=== PATIENT | male | born 1945 | race Caucasian/White ===

== ENCOUNTER 2018-07-09 06:22 | Emergency (ER) | payer MEDICARE, SELFPAY ==
[2018-07-09 06:24] VITALS: BP 153/101; PULSE 81; RESP 21; TEMP 36.9; O2SAT 94; BMI 33.8
--- NOTE | 2018-07-09 06:47 | CT_ITS ---
STUDY: CT ABDOMEN AND PELVIS WITH CONTRAST REASON FOR EXAM: Male, 73 years old. Nausea and vomiting since yesterday RADIATION DOSAGE (If Supplied By Facility): CTDIvol = ( 23.44 ) mGy, DLP = ( 1764.52 ) mGycm TECHNIQUE: Transaxial images were obtained from the dome of the diaphragm to the symphysis pubis with oral contrast. 100CC ml of Isovue 300 contrast was administered. Sagittal and coronal images were reconstructed. Individualized dose optimization techniques were used for this CT. COMPARISON: None. FINDINGS: A densely calcified right lower lobe granuloma. The visualized portions of the heart are within normal limits. There is decreased attenuation of the liver consistent with steatosis. Normal gallbladder and extrahepatic biliary system. There are multiple benign calcified granulomata of the spleen. Normal pancreas. Normal bilateral adrenal glands. Normal right kidney. Normal left kidney. Please note mild bilateral perinephric fat stranding; could be senescent in nature versus indication of infection Normal visualized stomach. Normal small intestine. There are multiple colonic diverticula consistent with diverticulosis. There is non-visualization of the appendix. There is diffuse atherosclerotic calcification of the abdominal aorta, without a demonstrated aneurysm. Normal inferior vena cava. Normal retroperitoneum. Normal urinary bladder. Normal visualized prostate gland. Normal abdominal wall. There are diffuse degenerative changes of the visualized lumbar spine. CT/Abdomen/Pelvis WITH Contrast IMPRESSION: Mild bilateral perinephric fat stranding, likely senescent in nature. Underlying infection cannot be fully excluded. Recommend correlation with UA. Severe fatty steatosis of the liver. Remainder is within normal limits Electronically Signed: Kevin Riddle DO at 9:06 EST Tel , Service support ,
--- NOTE | 2018-07-09 06:47 | EKG12_ITS ---
Test Reason : VOMITING Blood Pressure : / mmHG Vent. Rate : 082 BPM Atrial Rate : 082 BPM P-R Int : 134 ms QRS Dur : 094 ms QT Int : 416 ms P-R-T Axes : 029 022 019 degrees QTc Int : 486 ms Normal sinus rhythm Prolonged QT Abnormal ECG Confirmed by ERLINDA CHIRINOS MD ([id number]), research editor YUKI BURNETT ([id number]) on 07/10/2018 2:08:45 PM Referred By: VINCENT Confirmed By:ERLINDA CHIRINOS MD
--- NOTE | 2018-07-09 06:50 | ED.DCSUM_ITS ---
- ER Visit Summary Date of Service: 07/09/18 Chief Complaint: Nausea, vomiting History of Present Illness: The patient is a 73 M presenting with nausea, vomiting. He states this started yesterday. He states he has vomited approximately 10 times since yesterday. Denies blood in his emesis. Last bowel movement was on Monday. He denies fever. He has mild shortness of breath. Complains of diffuse abdominal pain. Denies sick contacts. Denies bad food exposure. He states he had similar symptoms approximately a month ago that resolved on its own. He denies chest pain. Physical Examination: Vitals are stable. Patient is afebrile. Alert no acute distress. HEENT exam is unremarkable. Neck is supple. Lungs are clear and equal bilaterally. Heart is regular rate and rhythm. Abdomen is soft mild diffuse tenderness with no rebound or guarding Extremities are unremarkable. Skin is diaphoretic No focal neurologic deficit. Remainder of exam is unremarkable. Emergency Department Course and Treatment: Patient is given IV fluids, Zofran. EKG is sinus rate of 82 with no acute ischemic changes. CBC shows white count 11.6, platelet 90. Previous platelets were 109. Chemistries show potassium 3.0, glucose 160, BUN 19, creatinine 1.50. Total bili is 2.8, ALT 118, AST 130. Alk phos 96. Lipase 301. Troponin is negative. Chest x-ray shows no acute process. CT abdomen pelvis is pending at this time and will be checked by the oncoming physician. Disposition: pending CT results Impression: Abdominal pain, nausea, vomiting This note was generated with [employer] dictation software. It may contain incorrect words, spelling, and punctuation that were not noted in review of the chart prior to signing ED Disposition - Plan for ED Patient: Chief Complaint: Nausea/Vomiting Referrals: Aniceto Alamo MD [Primary Care Provider] -
[2018-07-09] MEDS: Ondansetron 4 MG/2 ML Vial IV (06:52)
[2018-07-09] MEDS: 0.9% Normal Saline 1,000 ML 1000 ML IV (06:52)
[2018-07-09 07:09] LABS: Absolute Lymphocyte Count 1.59 X10^3/ul (0.83-4.51); Absolute Neutrophil Count 8.9 X10^3/uL (2.0-7.7); Basophil# 0.03 X10^3/uL; Basophil% 0.3 % (0-1); Eosinophil# 0.14 X10^3/uL; Eosinophils% 1.2 % (0-5); Hematocrit 48.2 % (40-54); Lymphocyte # 1.59 X10^3/ul (4.0); Lymphocyte % 13.7 % (19-41); Mean Corp Hgb Conc 35.3 g/gl (32-36); Mean Corpuscular Hgb 33.1 pg (27.0-32.0); Mean Platelet Vol. 11.1 fl (6.2-12.0); Monocyte# 0.92 X10^3/uL; Monocyte% 7.9 % (0-10); Neutrophil # 8.92 X10^3/uL (2.7-7.7); Neutrophil % 76.7 % (47-70); Platelet Count 90 K/mm3 (150-450); RBC Distribution Width CV 13.1 % (11.6-14.6); RBC Distribution Width SD 44.5 fl (35.1-43.9); Red Blood Count 5.13 M/mm3 (4.6-6.2); White Blood Count 11.6 K/mm3 (4.4-11.0)
[2018-07-09 07:10] LABS: POSITIVE COUNT NO; POSITIVE DIFFERENTIAL NO; POSITIVE MORPHOLOGY NO
[2018-07-09 07:13] LABS: ALB/GLOB Ratio 0.8 RATIO (0.9-2.4); AST(SGOT) 130 U/L (15-37); Alanine Aminotransfer ALT/SGPT 118 U/L (16-61); Albumin, Serum 3.7 g/dL (3.2-5.0); Alkaline Phosphatase 96 U/L (45-117); Anion Gap 14 (5-15); BUN 19 mg/dL (7-18); BUN/Creat Ratio 12.7 RATIO (10-20); Chloride 94 mmol/L (98-107); EST Glomerular Filtration Rate 49 mL/min (>60); Est Glom Filt Rate - Afr Amer 59 mL/min (>60); Estimated Creatinine Clearance 48.86 ml/min; Globulin 4.4 g/dL (2.2-4.2); Glucose 160 mg/dL (74-106); Lipase 301 U/L (73-393); Protein, Total 8.1 g/dL (6.4-8.2); Sodium Level 137 mmol/L (136-145)
--- NOTE | 2018-07-09 07:20 | RAD_ITS ---
STUDY: X-RAY CHEST REASON FOR EXAM: Male, 73 years old. Shortness of breath. TECHNIQUE: Single AP portable view of the chest. COMPARISON: None. FINDINGS: The lungs are clear and expanded. There is no demonstrated pleural abnormality. Normal size heart. There is a left epicardial fat pad. Normal mediastinum and nancy. Normal visualized pulmonary arteries. Normal visualized aortic arch and descending thoracic aorta. Normal visualized thoracic spine. Normal visualized ribs, clavicles, and shoulders. There is no demonstrated abnormality of the visualized soft tissue structures of the upper abdomen. RAD/Chest 1 View (Portable) IMPRESSION: No evidence for acute cardiopulmonary pathology. Electronically Signed: Derek Prajapati MD at 7:38 EST , Service support ,
[2018-07-09 08:23] VITALS: BP 153/90; PULSE 85; RESP 19; O2SAT 94
[2018-07-09 09:14] LABS: Bacteria 0 SEEN /hpf (None Seen); Mucous, Urine 0 SEEN /hpf (<or=2+); White Blood Cells 0 SEEN /hpf (0-5)
[2018-07-09 09:21] LABS: Color, Urine Yellow (Yellow); Glucose, Dipstick Normal (Normal); Ketone-Dipstick 15 mg/dl (Negative); Leukocyte Esterase-Dipstick 25 /ul (Negative); Nitrite-Dipstick Negative (Negative); Occult Blood-Urine 150 /ul (Negative); Protein-Dipstick 30 mg/dl (Negative); Urine Clarity Sl. Cloudy (Clear); Urine Urobilinogen 4 mg/dl (Normal); Urine pH 6.5 (5.0 - 8.0)
[2018-07-09 09:22] LABS: Urine Bilirubin Dipstick 1 mg/dL (Negative)
[2018-07-09 09:29] LABS: Hyaline Cast 0-5 SEEN /lpf (0-5); Red Blood Cells-Urine 0-5 SEEN /hpf (0-5); Squamous Epithelial Cells - UA 0-5 SEEN /hpf (0-5)
[2018-07-09 10:00] VITALS: BP 128/102; PULSE 77; RESP 13; O2SAT 94
--- NOTE | 2018-07-09 11:08 | ED.DCSUM_ITS ---
- ER Visit Summary Date of Service: 07/09/18 This patient was checked out to me by Dr. Sin with a CT and urinalysis pending. Test results: Urinalysis shows leukocytes, blood, and ketones. Micro is negative. Clinical Impression(s) from Imaging Studies Abdomen/Pelvis CT 07/09/18 06:47 IMPRESSION: Mild bilateral perinephric fat stranding, likely senescent in nature. Underlying infection cannot be fully excluded. Recommend correlation with UA. Severe fatty steatosis of the liver. Remainder is within normal limits Electronically Signed: Kevin Riddle DO at 9:06 EST Tel , Service support , Chest X-Ray 07/09/18 07:20 IMPRESSION: No evidence for acute cardiopulmonary pathology. Electronically Signed: Derek Prajapati MD at 7:38 EST , Service support , Emergency Department Course and Treatment: Patient is resting comfortably without complaint. He reports that he has had this multiple times in the past and they have been able to find an etiology for it. Treatment Plan: Patient will be discharged instructions follow-up his primary care physician tomorrow as previously scheduled. He is also given the name of Dr. Lauren to follow-up with as soon as possible. He will be placed on Zofran. Return to the emergency department for any worsening symptoms. Disposition: To home in improved and stable condition. Impression: 1. Vomiting. This note was generated with [employer] dictation software. It may contain incorrect words, spelling, and punctuation that were not noted in review of the chart prior to signing ED Disposition - Plan for ED Patient: Disposition: Home or Assisted Living Chief Complaint: Nausea/Vomiting Instructions: ED Abdominal Pain Unkn Cause Prescriptions: Ondansetron [Zofran Odt] 4 mg PO Q8H PRN PRN #10 tablet PRN Reason: Nausea Referrals: Aniceto Alamo MD [Primary Care Provider] - 1-2 Days if not improving Igor Lauren MD [NON-STAFF] - As soon as possible
[2018-07-09 11:35] VITALS: BP 135/97; PULSE 77; RESP 18; O2SAT 99
== END 2018-07-09 11:35 | disposition home or self-care (01) ==
PROVIDERS: Emergency Provider Emergency Medicine; Family Provider Family Medicine; PCP Family Medicine
DX: R10.84 Generalized abdominal pain (principal); R11.2 Nausea with vomiting, unspecified; K21.9 Gastro-esophageal reflux disease without esophagitis; I10 Essential (primary) hypertension; Z79.899 Other long term (current) drug therapy
CPT/HCPCS: 71045; 74177; 80053; 81001; 83690; 84484; 85025; 93005; 96361; 96374; 99284; J7030; Q9967; A4216; J2405

== ENCOUNTER → 2019-06-10 | Outpatient (CLI) | payer MEDICARE, SELFPAY ==
[2019-06-10 18:06] LABS: International Normalized Ratio 1.1; Prothrombin Time (Protime)PT. 14.1 SECONDS (11.7-14.9)
[2019-06-10 18:07] LABS: Partial Thromboplast Time 35.5 Seconds (24.1-36.2)
[2019-06-10 18:28] LABS: AST(SGOT) 19 U/L (15-37); Alanine Aminotransfer ALT/SGPT 15 U/L (16-61); Albumin, Serum 3.7 g/dL (3.2-5.0); Alkaline Phosphatase 105 U/L (45-117); Bilirubin, Direct 0.22 mg/dL (0.00-0.30); Globulin 3.5 g/dL (2.2-4.2); Protein, Total 7.2 g/dL (6.4-8.2)
[2019-06-11 10:13] LABS: Hepatitis B Surface Antigen REACTIVE (Nonreactive)
[2019-06-12 13:06] LABS: AFP, Tumor Marker 2.5 ng/mL (0.0-8.3)
== END | disposition home or self-care (01) ==
PROVIDERS: Family Provider Family Medicine; PCP Family Medicine; Referring Provider Internal Medicine Gastroenterology; Visit Provider Internal Medicine Gastroenterology
DX: B18.1 Chronic viral hepatitis B without delta-agent (principal)
CPT/HCPCS: 36415; 80076; 82105; 85610; 85730; 87340

== ENCOUNTER → 2020-06-03 | Outpatient (CLI) | payer MEDICARE, SELFPAY ==
[2020-06-03 12:22] LABS: Hematocrit 47.9 % (40-54); Hemoglobin 15.9 g/dL (13.0-16.5); Mean Corp Hgb Conc 33.2 g/dL (32-36); Mean Corpuscular Hgb 31.1 pg (27.0-32.0); Mean Corpuscular Volume 93.6 fL (80-94); Mean Platelet Vol. 11.8 fl (6.2-12.0); Platelet Count 123 K/mm3 (150-450); RBC Distribution Width CV 13.6 % (11.6-14.6); RBC Distribution Width SD 46.5 fl (35.1-43.9); Red Blood Count 5.12 M/mm3 (4.6-6.2); White Blood Count 7.6 K/mm3 (4.4-11.0)
[2020-06-03 12:42] LABS: International Normalized Ratio 1.1; Prothrombin Time (Protime)PT. 13.6 SECONDS (11.7-14.9)
[2020-06-03 12:44] LABS: Partial Thromboplast Time 32.6 Seconds (24.1-36.2)
[2020-06-03 12:53] LABS: AST(SGOT) 19 U/L (15-37); Alanine Aminotransfer ALT/SGPT 18 U/L (16-61); Albumin, Serum 3.5 g/dL (3.2-5.0); Alkaline Phosphatase 99 U/L (45-117); Anion Gap 3 (5-15); BUN 16 mg/dL (7-18); Chloride 108 mmol/L (98-107); Creatinine, Serum 1.14 mg/dL (0.70-1.30); EST Glomerular Filtration Rate 67 mL/min (>60); Est Glom Filt Rate - Afr Amer 81 mL/min (>60); Globulin 3.4 g/dL (2.2-4.2); Glucose 102 mg/dL (74-106); Potassium 3.9 mmol/L (3.5-5.1); Protein, Total 6.9 g/dL (6.4-8.2); Sodium Level 140 mmol/L (136-145)
== END | disposition home or self-care (01) ==
PROVIDERS: PCP Family Medicine; Referring Provider Internal Medicine Gastroenterology; Visit Provider Internal Medicine Gastroenterology
DX: B18.1 Chronic viral hepatitis B without delta-agent (principal)
CPT/HCPCS: 36415; 80053; 85027; 85610; 85730

== ENCOUNTER → 2020-06-12 | Outpatient (CLI) | payer MEDICARE, SELFPAY ==
--- NOTE | 2020-06-12 10:19 | MRI_ITS ---
STUDY: MRI ABDOMEN WITH AND WITHOUT CONTRAST REASON FOR EXAM: Male, 75 years old. hep c, cirrhosis, GENERALIZED ABD PAIN TECHNIQUE: Standardized fat and water weighted pulse sequences were obtained in all 3 orthogonal planes post contrast administration. IV DOTAREM 22CC was administered for the contrast portion of the examination. COMPARISON: CT scan 07/09/2018. FINDINGS: The visualized lung bases are unremarkable. The visualized portions of the heart are within normal limits. There is hepatomegaly with diffuse hepatic enlargement. No focal masses. No specific evidence for cirrhosis. Normal gallbladder and extrahepatic biliary system. Normal spleen. Normal pancreas. Normal bilateral adrenal glands. Normal right kidney. Normal left kidney. Grossly normal visualized stomach. Grossly normal small intestine. Grossly normal colon. There is non-visualization of the appendix. Normal abdominal aorta. Normal inferior vena cava. Normal retroperitoneum. Normal abdominal wall. There are diffuse degenerative changes of the visualized lumbar spine. MRI/MRI Abd WITH and W/O Contrast IMPRESSION: Hepatomegaly, but otherwise negative exam. Electronically Signed: Armando Cox MD at 16:22 EDT , Service support ,
== END | disposition home or self-care (01) ==
PROVIDERS: PCP Family Medicine; Referring Provider Internal Medicine Gastroenterology; Visit Provider Internal Medicine Gastroenterology
DX: K74.60 Unspecified cirrhosis of liver (principal); B19.10 Unspecified viral hepatitis B without hepatic coma
CPT/HCPCS: 74183; A9575; A4216

== ENCOUNTER → 2020-12-17 09:06 | Outpatient (CLI) | payer MEDICARE, SELFPAY ==
[2020-12-17 10:43] LABS: Prothrombin Time (Protime)PT. 12.9 SECONDS (11.7-14.9)
[2020-12-17 10:44] LABS: Partial Thromboplast Time 29.9 Seconds (24.1-36.2)
[2020-12-17 11:00] LABS: AST(SGOT) 20 U/L (15-37); Alanine Aminotransfer ALT/SGPT 19 U/L (16-61); Albumin, Serum 3.6 g/dL (3.2-5.0); Alkaline Phosphatase 98 U/L (45-117); Bilirubin, Direct 0.24 mg/dL (0.00-0.30); Globulin 3.4 g/dL (2.2-4.2)
[2020-12-17 11:15] LABS: Hepatitis B Surface Antigen REACTIVE (Nonreactive)
[2020-12-18 15:49] LABS: AFP, Tumor Marker 2.5 ng/mL (0.0-8.3)
== END ==
PROVIDERS: PCP Family Medicine; Referring Provider Internal Medicine Gastroenterology; Visit Provider Internal Medicine Gastroenterology
DX: K74.60 Unspecified cirrhosis of liver (principal); B18.1 Chronic viral hepatitis B without delta-agent
CPT/HCPCS: 36415; 80076; 82105; 85610; 85730; 87340

== ENCOUNTER → 2021-06-22 08:45 | Outpatient (CLI) | payer MEDICARE, SELFPAY ==
--- NOTE | 2021-06-22 08:48 | US_ITS ---
STUDY: ABDOMINAL ULTRASOUND - RIGHT UPPER QUADRANT REASON FOR VISIT: Male, 76 years old CHRONIC HEP B TECHNIQUE: Ultrasound evaluation of the right upper quadrant was performed with real-time and static walsh-scale imaging. TECHNICAL QUALITY: Adequate. COMPARISON: None. FINDINGS: Liver: The liver measures 19.5 cm. There is normal echogenicity of the liver. The bile ducts are within normal limits. There is hepatic color flow. The direction of portal flow is hepatopetal. There is no demonstrated mass lesion. Gallbladder: Normal distended gallbladder. The gallbladder wall measures 3 mm. There is a negative sonographic Castro''s sign. There is no pericholecystic fluid. There are no gallstones. Common Bile Duct (C.B.D.): The common bile duct measures 3 mm. Pancreas: Normal size of the head, body and tail of the pancreas. There is normal echogenicity of the pancreas. There is no demonstrated pancreatic mass or cyst. No pancreatic ductal dilation demonstrated. Right Kidney: Normal size of the right kidney. The right kidney measures 10.3 x 6.2 x 6 cm. Normal renal cortex. The right cortex measures 1.5 cm. There is no demonstrated renal mass or cyst. There is no right hydronephrosis. US/Liver IMPRESSION: Hepatomegaly. Electronically Signed: Jay Balderas MD at 3:50 EDT Tel , Service support ,
== END ==
PROVIDERS: PCP Family Medicine; Referring Provider Internal Medicine Gastroenterology; Visit Provider Internal Medicine Gastroenterology
DX: B18.1 Chronic viral hepatitis B without delta-agent (principal)
CPT/HCPCS: 76705

== ENCOUNTER → 2021-06-23 11:06 | Outpatient (CLI) | payer MEDICARE, SELFPAY ==
[2021-06-23 15:24] LABS: Partial Thromboplast Time 34.3 Seconds (24.1-36.2)
[2021-06-23 15:30] LABS: AST(SGOT) 19 U/L (15-37); Alanine Aminotransfer ALT/SGPT 24 U/L (16-61); Albumin, Serum 3.4 g/dL (3.2-5.0); Alkaline Phosphatase 84 U/L (45-117); Bilirubin, Direct 0.26 mg/dL (0.00-0.30); Globulin 3.8 g/dL (2.2-4.2); Protein, Total 7.2 g/dL (6.4-8.2)
[2021-06-23 15:34] LABS: International Normalized Ratio 1.1; Prothrombin Time (Protime)PT. 13.3 SECONDS (11.7-14.9)
[2021-06-25 13:21] LABS: AFP, Tumor Marker 2.1 ng/mL (0.0-8.3)
== END ==
PROVIDERS: PCP Family Medicine; Referring Provider Internal Medicine Gastroenterology; Visit Provider Internal Medicine Gastroenterology
DX: B18.1 Chronic viral hepatitis B without delta-agent (principal)
CPT/HCPCS: 36415; 80076; 82105; 85610; 85730

== ENCOUNTER 2021-07-07 20:09 | Emergency (ER) | payer MEDICARE, SELFPAY ==
[2021-07-07 20:10] VITALS: BP 152/98; PULSE 53; RESP 16; TEMP 35.8; O2SAT 97; BMI 34.8
--- NOTE | 2021-07-07 21:37 | EX.ED.UPPERE ---
HPI History of Present Illness Chief Complaint: Laceration Informant: patient Narrative Narrative: Left hand dominant male presents injury right pinky from a paper Mahesh 7:30 PM. States was cleaning the blades when it turned on. No anticoagulant medicines. Tetanus unknown. States it was a flap of skin controlled with pressure. No paresthesias. No other complaints or injuries. Tetanus Immunization: Unknown [facility] Medical History COPD (chronic obstructive pulmonary disease) Essential (primary) hypertension GERD (gastroesophageal reflux disease) Hyperlipemia, mixed Home Medications kxofyexo-qma-GO-lycopen-lutein 1 ea PO DAILY 07/14/16 [History Last Taken Unknown] vit C,U-Ae-mknco-lutein-zeaxan 1 ea PO DAILY 07/14/16 [History Last Taken Unknown] omeprazole 20 mg capsule,delayed release 20 mg PO QDAY 08/22/17 [History Last Taken Unknown] metoprolol succinate 200 mg tablet,extended release 24 hr 200 mg PO QDAY 08/23/17 [History Last Taken Unknown] levothyroxine 25 mcg PO DAILY 07/09/18 [History Last Taken Unknown] ondansetron 4 mg PO Q8H PRN PRN #10 tab 07/09/18 [Rx Last Taken Unknown] Allergy/AdvReac Type Severity Reaction Status Date / Time No Known Allergies Allergy Verified 07/14/16 09:15 Family History Father Diabetes Surgical History History of back surgery (~05/2016) Social History Smoking Status: Former smoker alcohol intake: current alcohol intake frequency: a few times a month Alcohol type: beer substance use type: does not use caffeine: Yes Type: tea what type of physical activity do you participate in: none seatbelt use: always do you feel safe at home: Yes ROS ROS ED Constitutional Constitutional ED: Denies chills, fever(s) or sweats Eyes Eyes: Denies change in vision ENT ENT ED: Denies dysphagia or sore throat Cardiovascular Cardiovascular: Denies chest pain, leg edema, palpitations or racing heartbeat Respiratory/Chest Respiratory/Chest: Denies cough, dyspnea or dyspnea on exertion Gastrointestinal Gastrointestinal: Denies abdominal pain, diarrhea, nausea or vomiting Genitourinary Genitourinary ED: Denies dysuria, hematuria or urinary frequency Musculoskeletal Musculoskeletal: Denies back pain, extremity pain or neck pain Integumentary Reports rash and other Details: Right pinky injury ; Denies wounds Neurologic Neurologic: Denies headache(s), paresthesias or weakness EXAM Physical Exam Const Vital Signs: 07/07/21 20:10 Temperature 96.5 F L Temperature Source Temporal Pulse Rate 53 L Respiratory Rate 16 Blood Pressure 152/98 H Blood Pressure Mean 116 Pulse Ox 97 Oxygen Delivery Method Room Air Positive well nourished and well developed General Appearance ED: well developed and NAD HEENT Reports moist mucous membranes normocephalic and atraumatic Eyes PERRL, EOMs intact bilaterally and conjunctivae normal General Eye ED: Yes normal appearance of both eyes Neck no lymphadenopathy and supple General: Negative for tenderness Chest Wall Chest: Negative for tenderness Resp normal respiratory effort and normal air movement Effort and Inspection: symmetric chest movement; Negative for respiratory distress Cardio regular rate, regular rhythm and no murmurs Peripheral Pulses: pulses 2+ throughout GI normal to inspection, nondistended, normoactive bowel sounds and non-tender Palpation: Negative for guarding or rebound tenderness present Back/Spine no CVA tenderness and no thoracic nor lumbar tenderness Extremity Extremity Narrative: Right hand fifth digit. Dressing removed, there was slight jagged laceration distal tip with nailbed injury at the tip with nail avulsed. Total laceration flap 2.5 cm. No active bleeding. No bony exposure. General Extremety ED: Negative for edema or tenderness General Extremity: Negative for edema Neuro oriented x3 and no sensory deficits noted Sensorium / Orientation: awake and alert Skin no rashes or lesions noted and no wounds MDM MDM MDM Narrative Medical decision making narrative: Three-view x-ray right pinky finger obtained reviewed by myself and read by radiology shows no bony injuries. Tetanus updated. Laceration repaired, wound care discussed with patient. Sutures removed in 10 to 14 days. All questions were answered. Procedure note: Verbal consent. Normal sterile conditions. Alcohol prep of the skin, metacarpal block performed of the fifth digit. Wound copiously cleansed with normal saline. Turnicot was placed, flap of skin with avulsion noted at the right distal tip radial aspect, 2 half centimeters, nailbed injury. Total of 2, 5-0 nylon simple interrupted sutures were placed with good approximation of the flap. Small superficial skin avulsion noted proximally which was debrided. Bacitracin dressing with finger splint placed by myself. Turnicot was removed. Bleeding controlled. Patient tolerated procedure well. Discharge Plan Triage Chief Complaint: Laceration ED Provider: Brayden Gonsales Dx/Rx/DC Orders Clinical Impression: Laceration of right little finger, Need for tetanus, diphtheria, and acellular pertussis (Tdap) vaccine Instructions: ED Laceration, Hand: All Closures Prescriptions: No Action omeprazole 20 mg capsule,delayed release(DR/EC) 20 mg PO QDAY RF: 0 metoprolol succinate 200 mg tablet extended release 24 hr 200 mg PO QDAY RF: 0 kwsiwqcr-okg-GV-lycopen-lutein 1 EACH tablet 1 ea PO DAILY RF: 0 vit C,N-Xs-lituc-lutein-zeaxan 1 EACH capsule 1 ea PO DAILY RF: 0 levothyroxine 25 MCG tablet 25 mcg PO DAILY RF: 0 ondansetron 4 MG tablet 4 mg PO Q8H PRN PRN (Reason: Nausea) Qty: 10 RF: 0 Primary Care Provider: Aniceto Alamo Referrals: Aniceto Alamo MD [Primary Care Provider] - 10-14 Days suture removal Disposition Disposition: Home, Self Care Discharge Date/Time: 07/08/21 00:06
--- NOTE | 2021-07-07 21:45 | RAD_ITS ---
INDICATION: injury -- pinky injury EXAMINATION/TECHNIQUE: X-RAY - RIGHT HAND XR Fingers Min 2 Views 3 VIEWS COMPARISON: None. FINDINGS: SOFT TISSUES: No soft tissue swelling or gas. No radiopaque foreign body. BONES/JOINTS: No acute fracture or subluxation.. Normal alignment. Preservation of the joint space.. No sclerotic or destructive changes observed. RAD/Finger(s) Min 2 Views IMPRESSION: Negative. Electronically Signed: Herrera Ortega DO at 23:15 EDT Tel , Service support ,
[2021-07-07] MEDS: Diphth,Pertuss(Acell),Tet Vac 0.5 ML Vial IM (22:01)
[2021-07-07] MEDS: Lidocaine 1% (20 ml mdv) 20 ML Vial INFILT (22:01)
[2021-07-07] MEDS: BACITRACIN 15 GM Tube 1 APPLIC TOPICAL (22:02)
[2021-07-08 00:06] VITALS: PULSE 62; RESP 18; O2SAT 96
== END 2021-07-08 00:06 | disposition home or self-care (01) ==
PROVIDERS: Emergency Provider Emergency Medicine; PCP Family Medicine
DX: S61.316A Laceration without foreign body of right little finger with damage to nail, initial encounter (principal); J44.9 Chronic obstructive pulmonary disease, unspecified; I10 Essential (primary) hypertension; K21.9 Gastro-esophageal reflux disease without esophagitis; E78.2 Mixed hyperlipidemia; Z79.899 Other long term (current) drug therapy; Z87.891 Personal history of nicotine dependence; Z23 Encounter for immunization; W26.8XXA Contact with other sharp object(s), not elsewhere classified, initial encounter; Y93.89 Activity, other specified; Y92.89 Other specified places as the place of occurrence of the external cause; Y99.8 Other external cause status
CPT/HCPCS: 12001; 73140; 90471; 90715; 99283

== ENCOUNTER 2021-12-20 09:07 | Outpatient (CLI) | payer MEDICARE, OTHER, SELFPAY ==
[2021-12-20 10:13] LABS: Prothrombin Time (Protime)PT. 13.3 SECONDS (11.7-14.9)
[2021-12-20 10:14] LABS: Partial Thromboplast Time 32.3 Seconds (24.1-36.2)
[2021-12-20 10:44] LABS: AST(SGOT) 21 U/L (15-37); Alanine Aminotransfer ALT/SGPT 18 U/L (16-61); Albumin, Serum 3.4 g/dL (3.2-5.0); Alkaline Phosphatase 90 U/L (45-117); Bilirubin, Direct 0.22 mg/dL (0.00-0.30); Globulin 3.5 g/dL (2.2-4.2); Protein, Total 6.9 g/dL (6.4-8.2)
[2021-12-22 10:32] LABS: AFP, Tumor Marker 2.2 ng/mL (0.0-8.4)
== END 2021-12-20 23:59 | disposition home or self-care (01) ==
PROVIDERS: PCP Family Medicine; Referring Provider Internal Medicine Gastroenterology; Visit Provider Internal Medicine Gastroenterology
DX: B18.1 Chronic viral hepatitis B without delta-agent (principal)
CPT/HCPCS: 36415; 80076; 82105; 85610; 85730

== ENCOUNTER → 2022-01-12 | Outpatient (CLI) | payer MEDICARE, OTHER, SELFPAY ==
--- NOTE | 2022-01-12 09:05 | US_ITS ---
STUDY: ABDOMINAL ULTRASOUND - ELASTOGRAPHY REASON FOR VISIT: Male, 76 years old. Chronic hepatitis B. TECHNIQUE: Liver stiffness measurements were obtained on a [employer] RS 85 ultrasound machine using a CA 1-7 probe following the SRU guidelines. 3 measurements were obtained using a 2-D-SWE method. The IQR/M was 22% suggesting a quality data set. TECHNICAL QUALITY: Adequate. COMPARISON: Comparison is made with prior study done earlier in the day. FINDINGS: Liver: Fatty infiltration of the liver. Median liver stiffness measured 7.1 kPa. US/Elastography Parenchyma/Organ IMPRESSION: Liver stiffness measures 7.1 kPa compatible with F2-F3 (Mild to moderate liver fibrosis) Metavir score. Electronically Signed: Ervin Armas MD at 13:27 EDT ,
--- NOTE | 2022-01-12 09:17 | US_ITS ---
STUDY: ABDOMINAL ULTRASOUND - RIGHT UPPER QUADRANT REASON FOR VISIT: Male, 76 years old CHRONIC HEP B TECHNIQUE: Ultrasound evaluation of the right upper quadrant was performed with real-time and static walsh-scale imaging. TECHNICAL QUALITY: Adequate. COMPARISON: Comparison is made with prior study dated 06/22/2021. FINDINGS: Liver: The liver is enlarged and measures 20.7 cm. There is increased echogenicity consistent with fatty infiltration. The bile ducts are within normal limits. There is hepatic color flow. The direction of portal flow is hepatopetal. There is no demonstrated mass lesion. Gallbladder: Normal distended gallbladder. The gallbladder wall measures 2.6 mm. There is a negative sonographic Castro''s sign. There is no pericholecystic fluid. There is a solitary echogenic gallstone within the gallbladder. Sludge is seen within the gallbladder lumen. Common Bile Duct (C.B.D.): The common bile duct measures 4.5 mm. Pancreas: Normal size of the head, body and tail of the pancreas. There is increased echogenicity of the pancreas. There is no demonstrated pancreatic mass or cyst. Right Kidney: Normal size of the right kidney. The right kidney measures 10.3 cm x 5.7 cm x 5.4 cm. Normal renal cortex. The right cortex measures 1.5 cm. There is no demonstrated renal mass or cyst. There is no right hydronephrosis. US/Abdomen Limited IMPRESSION: Hepatomegaly and diffuse fatty infiltration of the liver. 3 mm gallstone and sludge in the gallbladder lumen. Electronically Signed: Ervin Armas MD at 13:25 EDT ,
== END | disposition home or self-care (01) ==
LOC: US 09:03
PROVIDERS: PCP Family Medicine; Referring Provider Internal Medicine Gastroenterology; Visit Provider Internal Medicine Gastroenterology
DX: B18.1 Chronic viral hepatitis B without delta-agent (principal)
CPT/HCPCS: 76705; 76981

== ENCOUNTER 2022-07-05 07:53 | Outpatient (RCR) | payer MEDICARE, OTHER, SELFPAY ==
[2022-07-05 10:18] LABS: Hematocrit 48.7 % (40-54); Hemoglobin 17.1 g/dL (13.0-16.5); Mean Corp Hgb Conc 35.1 g/dL (32-36); Mean Corpuscular Hgb 32.6 pg (27.0-32.0); Mean Corpuscular Volume 92.8 fL (80-94); Mean Platelet Vol. 10.5 fl (6.2-12.0); Platelet Count 112 K/mm3 (150-450); RBC Distribution Width CV 14.5 % (11.6-14.6); RBC Distribution Width SD 49.2 fl (35.1-43.9); Red Blood Count 5.25 M/mm3 (4.6-6.2)
[2022-07-05 10:29] LABS: AST(SGOT) 24 U/L (15-37); Alanine Aminotransfer ALT/SGPT 22 U/L (16-61); Albumin, Serum 3.5 g/dL (3.2-5.0); Alkaline Phosphatase 73 U/L (45-117); Anion Gap 6 (5-15); BUN 16 mg/dL (7-18); BUN/Creat Ratio 13.7 RATIO (10-20); Calcium,Total 8.9 mg/dL (8.5-10.1); Chloride 108 mmol/L (98-107); Creatinine, Serum 1.17 mg/dL (0.70-1.30); EST Glomerular Filtration Rate 64 mL/min (>60); Est Glom Filt Rate - Afr Amer 78 mL/min (>60); Globulin 3.5 g/dL (2.2-4.2); Glucose 117 mg/dL (74-106); Potassium 4.3 mmol/L (3.5-5.1); Sodium Level 140 mmol/L (136-145)
[2022-07-05 10:33] LABS: Partial Thromboplast Time 32.3 Seconds (24.1-36.2)
[2022-07-07 15:57] LABS: AFP, Tumor Marker 3.1 ng/mL (0.0-8.4)
== END 2022-08-03 18:00 | disposition home or self-care (01) ==
LOC: MTLAB 07:53
PROVIDERS: PCP Family Medicine; Referring Provider Internal Medicine Gastroenterology; Visit Provider Internal Medicine Gastroenterology
DX: B18.0 Chronic viral hepatitis B with delta-agent (principal)
CPT/HCPCS: 36415; 80053; 82105; 85027; 85610; 85730

== ENCOUNTER → 2022-07-13 | Outpatient (CLI) | payer MEDICARE, OTHER, SELFPAY | END | disposition home or self-care (01) | PROVIDERS: PCP Family Medicine; Referring Provider Internal Medicine Gastroenterology; Visit Provider Internal Medicine Gastroenterology | DX: B18.1 Chronic viral hepatitis B without delta-agent (principal) | CPT/HCPCS: 36415 ==

== ENCOUNTER → 2022-07-18 | Outpatient (CLI) | payer MEDICARE, OTHER, SELFPAY ==
--- NOTE | 2022-07-18 07:15 | CT_ITS ---
STUDY: CT ABDOMEN WITH CONTRAST REASON FOR EXAM: Male, 77 years old. CIRRHOSIS. Chronic hepatitis B. RADIATION DOSAGE (If Supplied By Facility): CTDIvol = ( 19.92 ) mGy, DLP = ( 779.28 ) mGycm TECHNIQUE: Transaxial images were obtained post I.V. administration of IV 100mL Isovue-300, and oral contrast. Sagittal and coronal images were reconstructed. Individualized dose optimization techniques were used for this CT. COMPARISON: Comparison is made with prior study dated 07/09/2018. FINDINGS: Stable calcified granuloma in the right lower lobe. Coronary artery calcification. There is decreased attenuation of the liver consistent with steatosis. Small gallstones in the region of the neck of the gallbladder. There are multiple benign calcified granulomata of the spleen. Normal pancreas. There is a small, circumscribed, smooth, low attenuation right adrenal mass, consistent with an adrenal adenoma. This measures 1.2 cm. Normal left adrenal gland. Normal right kidney. Normal left kidney. Normal visualized stomach. Normal small intestine. Normal colon. The appendix is visualized and appears normal. There is scattered atherosclerotic calcification of the abdominal aorta, without a demonstrated aneurysm. Normal inferior vena cava. Normal retroperitoneum. Normal abdominal wall. There are diffuse degenerative changes of the visualized lumbar spine. CT/Abdomen WITH IV Contrast IMPRESSION: Fatty infiltration of the liver. 1.2 cm right adrenal adenoma. Scattered calcified splenic granulomas. Multiple small gallstones. Electronically Signed: Ervin Armas MD at 12:54 EST ,
== END | disposition home or self-care (01) ==
PROVIDERS: PCP Family Medicine; Referring Provider Internal Medicine Gastroenterology; Visit Provider Internal Medicine Gastroenterology
DX: R16.0 Hepatomegaly, not elsewhere classified (principal); K74.60 Unspecified cirrhosis of liver
CPT/HCPCS: 74160; Q9967

== ENCOUNTER → 2022-12-12 | Outpatient (CLI) | payer MEDICARE, OTHER, SELFPAY ==
[2022-12-12 09:57] LABS: Hematocrit 47.5 % (40-54); Hemoglobin 15.7 g/dL (13.0-16.5); Mean Corp Hgb Conc 33.1 g/dL (32-36); Mean Corpuscular Hgb 30.2 pg (27.0-32.0); Mean Corpuscular Volume 91.3 fL (80-94); Mean Platelet Vol. 11.2 fl (6.2-12.0); Platelet Count 100 K/mm3 (150-450); RBC Distribution Width CV 13.5 % (11.6-14.6); RBC Distribution Width SD 45.3 fl (35.1-43.9); White Blood Count 7.4 K/mm3 (4.4-11.0)
[2022-12-12 10:09] LABS: ALB/GLOB Ratio 1.1 RATIO (0.9-2.4); AST(SGOT) 20 U/L (15-37); Alanine Aminotransfer ALT/SGPT 20 U/L (16-61); Albumin, Serum 3.4 g/dL (3.2-5.0); Alkaline Phosphatase 81 U/L (45-117); Anion Gap 1 (5-15); BUN 23 mg/dL (7-18); BUN/Creat Ratio 22.8 RATIO (10-20); Calcium,Total 8.6 mg/dL (8.5-10.1); Chloride 113 mmol/L (98-107); Creatinine, Serum 1.01 mg/dL (0.70-1.30); EST Glomerular Filtration Rate 76 mL/min (>60); Est Glom Filt Rate - Afr Amer 92 mL/min (>60); Globulin 3.1 g/dL (2.2-4.2); Glucose 116 mg/dL (74-106); Potassium 3.9 mmol/L (3.5-5.1); Protein, Total 6.5 g/dL (6.4-8.2); Sodium Level 139 mmol/L (136-145)
[2022-12-12 10:16] LABS: International Normalized Ratio 1.1; Prothrombin Time (Protime)PT. 14.3 SECONDS (11.7-14.9)
[2022-12-12 10:17] LABS: Partial Thromboplast Time 28.7 Seconds (24.1-36.2)
[2022-12-13 14:43] LABS: AFP, Tumor Marker 2.3 ng/mL (0.0-8.4)
== END | disposition home or self-care (01) ==
LOC: MTLAB 07:41
PROVIDERS: PCP Family Medicine; Referring Provider Internal Medicine Gastroenterology; Visit Provider Internal Medicine Gastroenterology
DX: K73.9 Chronic hepatitis, unspecified (principal)
CPT/HCPCS: 36415; 80053; 82105; 85027; 85610; 85730

== ENCOUNTER → 2023-06-19 | Outpatient (CLI) | payer MEDICARE, OTHER, SELFPAY ==
[2023-06-19 15:28] LABS: Absolute Lymphocyte Count 1.89 X10^3/uL (0.83-4.51); Absolute Neutrophil Count 4.7 X10^3/uL (2.0-7.7); Basophil# 0.06 X10^3/uL; Basophil% 0.8 % (0-1); Eosinophil# 0.18 X10^3/uL; Eosinophils% 2.4 % (0-5); Hematocrit 48.2 % (40-54); Lymphocyte # 1.89 X10^3/ul (0.83-4.51); Lymphocyte % 24.8 % (19-41); Mean Corp Hgb Conc 33.2 g/dL (32-36); Mean Corpuscular Hgb 30.9 pg (27.0-32.0); Mean Corpuscular Volume 93.2 fL (80-94); Monocyte% 10.5 % (0-10); NRBC Flagged by Analyzer 0 % (0-5); Neutrophil # 4.66 X10^3/uL (2.7-7.7); Neutrophil % 61.1 % (47-70); Platelet Count 122 K/mm3 (150-450); RBC Distribution Width CV 13.5 % (11.6-14.6); RBC Distribution Width SD 45.6 fl (35.1-43.9); Red Blood Count 5.17 M/mm3 (4.6-6.2); White Blood Count 7.6 K/mm3 (4.4-11.0)
[2023-06-19 15:33] LABS: Prothrombin Time (Protime)PT. 13.6 SECONDS (11.7-14.9)
[2023-06-19 15:34] LABS: Partial Thromboplast Time 29.9 Seconds (24.1-36.2)
[2023-06-19 15:54] LABS: AST(SGOT) 23 U/L (15-37); Alanine Aminotransfer ALT/SGPT 28 U/L (16-61); Albumin, Serum 3.4 g/dL (3.2-5.0); Alkaline Phosphatase 79 U/L (45-117); Anion Gap 6 (5-15); BUN 20 mg/dL (7-18); BUN/Creat Ratio 16.3 RATIO (10-20); Calcium,Total 8.9 mg/dL (8.5-10.1); Chloride 109 mmol/L (98-107); Creatinine, Serum 1.23 mg/dL (0.70-1.30); EST Glomerular Filtration Rate 61 mL/min (>60); Est Glom Filt Rate - Afr Amer 73 mL/min (>60); Globulin 3.4 g/dL (2.2-4.2); Glucose 117 mg/dL (74-106); Potassium 4.4 mmol/L (3.5-5.1); Protein, Total 6.8 g/dL (6.4-8.2); Sodium Level 139 mmol/L (136-145)
[2023-06-21 04:07] LABS: AFP, Tumor Marker 2.9 ng/mL (0.0-8.4)
== END | disposition home or self-care (01) ==
PROVIDERS: PCP Family Medicine; Referring Provider Internal Medicine Gastroenterology; Visit Provider Internal Medicine Gastroenterology
DX: K74.60 Unspecified cirrhosis of liver (principal); B18.1 Chronic viral hepatitis B without delta-agent
CPT/HCPCS: 36415; 80053; 82105; 85025; 85610; 85730

== ENCOUNTER → 2023-07-31 | Outpatient (CLI) | payer MEDICARE, OTHER, SELFPAY | END | disposition home or self-care (01) | PROVIDERS: PCP Family Medicine; Referring Provider Internal Medicine Gastroenterology; Visit Provider Internal Medicine Gastroenterology | DX: B18.1 Chronic viral hepatitis B without delta-agent (principal) | CPT/HCPCS: 36415 ==

== ENCOUNTER → 2023-08-02 | Outpatient (CLI) | payer MEDICARE, OTHER, SELFPAY ==
--- NOTE | 2023-08-02 13:43 | CT_ITS ---
INDICATION: CIRRHOSIS/HEPATITIS B EXAMINATION: CT Abdomen And Pelvis W/ Contrast Injection TECHNIQUE: Helically acquired images were obtained of the abdomen and pelvis after IV contrast. A radiation dose optimization technique was used for this scan. IV Contrast dosage and agent: IV 100mL Isovue-300 Oral contrast: None. COMPARISON: None. FINDINGS: Visualized lung bases: Unremarkable Liver: Unremarkable Gallbladder: Few small intraluminal stones seen. Spleen: Unremarkable Pancreas: Unremarkable Adrenal Glands: Unremarkable Kidneys: Unremarkable Vasculature: Mild scattered aortoiliac atherosclerotic calcifications. GI Tract: Unremarkable Lymphadenopathy: None Peritoneum: No ascites. Bladder: Unremarkable Reproductive organs: Unremarkable Bones/Soft tissues: There are diffuse degenerative changes of the spine. CT/Abdomen/Pelvis WITH Contrast IMPRESSION: No acute abnormalities in the abdomen or pelvis. No evidence of cirrhosis. Cholelithiasis. Electronically Signed: Chico Ya MD at 20:14 EST ,
[2023-08-02 14:07] LABS: CREATININE FINGERSTICK 1.1 mg/dL (0.70-1.30); EGFR FINGERSTICK > 60.0000 mL/min (>60)
== END | disposition home or self-care (01) ==
LOC: CT 13:39
PROVIDERS: PCP Family Medicine; Referring Provider Internal Medicine Gastroenterology; Visit Provider Internal Medicine Gastroenterology
DX: K74.60 Unspecified cirrhosis of liver (principal); B19.10 Unspecified viral hepatitis B without hepatic coma
CPT/HCPCS: 74177; Q9967

== ENCOUNTER → 2024-01-04 | Outpatient (CLI) | payer MEDICARE, OTHER, SELFPAY ==
[2024-01-04 12:24] LABS: Absolute Lymphocyte Count 1.87 X10^3/uL (0.83-4.51); Absolute Neutrophil Count 4.5 X10^3/uL (2.0-7.7); Basophil# 0.07 X10^3/uL; Basophil% 0.9 % (0-1); Eosinophil# 0.43 X10^3/uL; Eosinophils% 5.6 % (0-5); Lymphocyte # 1.87 X10^3/ul (0.83-4.51); Lymphocyte % 24.3 % (19-41); Mean Corp Hgb Conc 33.3 g/dL (32-36); Mean Corpuscular Volume 90.1 fL (80-94); Mean Platelet Vol. 11.9 fl (6.2-12.0); Monocyte# 0.84 X10^3/uL; Monocyte% 10.9 % (0-10); NRBC Flagged by Analyzer 0 % (0-5); Neutrophil # 4.46 X10^3/uL (2.7-7.7); Platelet Count 106 K/mm3 (150-450); RBC Distribution Width CV 14.6 % (11.6-14.6); RBC Distribution Width SD 47.6 fl (35.1-43.9); Red Blood Count 5.33 M/mm3 (4.6-6.2); White Blood Count 7.7 K/mm3 (4.4-11.0)
[2024-01-04 12:25] LABS: International Normalized Ratio 1.1; Prothrombin Time (Protime)PT. 14.1 SECONDS (11.7-14.9)
[2024-01-04 12:26] LABS: Partial Thromboplast Time 30.6 Seconds (24.1-36.2)
[2024-01-04 12:48] LABS: AST(SGOT) 25 U/L (15-37); Alanine Aminotransfer ALT/SGPT 22 U/L (16-61); Albumin, Serum 3.4 g/dL (3.2-5.0); Alkaline Phosphatase 90 U/L (45-117); Anion Gap 6 (5-15); BUN 27 mg/dL (7-18); BUN/Creat Ratio 19.9 RATIO (10-20); Chloride 111 mmol/L (98-107); Creatinine, Serum 1.36 mg/dL (0.70-1.30); EST Glomerular Filtration Rate 54 mL/min (>60); Est Glom Filt Rate - Afr Amer 65 mL/min (>60); Globulin 3.5 g/dL (2.2-4.2); Glucose 120 mg/dL (74-106); Potassium 4.2 mmol/L (3.5-5.1); Protein, Total 6.9 g/dL (6.4-8.2); Sodium Level 142 mmol/L (136-145)
[2024-01-05 04:07] LABS: AFP, Tumor Marker 2.6 ng/mL (0.0-8.4)
== END | disposition home or self-care (01) ==
LOC: MTLAB 09:50
PROVIDERS: PCP Family Medicine; Referring Provider Internal Medicine Gastroenterology; Visit Provider Internal Medicine Gastroenterology
DX: K74.60 Unspecified cirrhosis of liver (principal); B18.1 Chronic viral hepatitis B without delta-agent
CPT/HCPCS: 36415; 80053; 82105; 85025; 85610; 85730

== ENCOUNTER → 2024-01-27 | Outpatient (CLI) | payer MEDICARE, OTHER, SELFPAY ==
--- NOTE | 2024-01-27 10:03 | US_ITS ---
EXAM: US ABDOMEN LIMITED, RIGHT UPPER QUADRANT CLINICAL INDICATION: Chronic viral hepatitis B without delta-agent TECHNIQUE: Real-time ultrasound of the right upper quadrant with image documentation. COMPARISON: No relevant prior studies available. FINDINGS: LIVER: Abnormal liver echogenicity without focal mass. Portal and hepatic veins are patent. No intrahepatic biliary ductal dilation. GALLBLADDER: Multiple small stones are present within the gallbladder. No gallbladder wall thickening is demonstrated. No pericholecystic fluid. Negative sonographic Castro''s sign. COMMON BILE DUCT: Unremarkable as visualized. The proximal common bile duct is normal size. PANCREAS: Pancreas is obscured by overlying bowel gas. RIGHT KIDNEY: Normal. There is no hydronephrosis. No shadowing calculus. No focal lesion or perinephric collection is demonstrated. US/Abdomen Limited IMPRESSION: 1. Parenchymal liver disease. 2. Cholelithiasis. Electronically Signed: Lauro Steel MD at 16:41 EDT ,
== END | disposition home or self-care (01) ==
LOC: US 10:02
PROVIDERS: PCP Family Medicine; Referring Provider Internal Medicine Gastroenterology; Visit Provider Internal Medicine Gastroenterology
DX: B18.1 Chronic viral hepatitis B without delta-agent (principal)
CPT/HCPCS: 76705

== ENCOUNTER → 2024-03-05 | Outpatient (CLI) | payer MEDICARE, OTHER, SELFPAY ==
[2024-03-05 17:27] LABS: Absolute Lymphocyte Count 2.43 X10^3/uL (0.83-4.51); Absolute Neutrophil Count 4.5 X10^3/uL (2.0-7.7); Basophil# 0.05 X10^3/uL; Basophil% 0.6 % (0-1); Eosinophil# 0.19 X10^3/uL; Eosinophils% 2.4 % (0-5); Hematocrit 47.8 % (40-54); Hemoglobin 15.9 g/dL (13.0-16.5); Lymphocyte # 2.43 X10^3/ul (0.83-4.51); Lymphocyte % 30.3 % (19-41); Mean Corp Hgb Conc 33.3 g/dL (32-36); Mean Corpuscular Hgb 30.5 pg (27.0-32.0); Mean Corpuscular Volume 91.6 fL (80-94); Mean Platelet Vol. 11.1 fl (6.2-12.0); Monocyte# 0.87 X10^3/uL; Monocyte% 10.8 % (0-10); NRBC Flagged by Analyzer 0 % (0-5); Neutrophil # 4.47 X10^3/uL (2.7-7.7); Neutrophil % 55.7 % (47-70); Platelet Count 110 K/mm3 (150-450); RBC Distribution Width CV 14.3 % (11.6-14.6); RBC Distribution Width SD 48.1 fl (35.1-43.9); Red Blood Count 5.22 M/mm3 (4.6-6.2)
[2024-03-05 18:14] LABS: ALB/GLOB Ratio 1.1 RATIO (0.9-2.4); AST(SGOT) 27 U/L (15-37); Alanine Aminotransfer ALT/SGPT 28 U/L (16-61); Albumin, Serum 3.5 g/dL (3.2-5.0); Alkaline Phosphatase 86 U/L (45-117); Anion Gap 6 (5-15); BUN 26 mg/dL (7-18); BUN/Creat Ratio 21.1 RATIO (10-20); Calcium,Total 8.8 mg/dL (8.5-10.1); Chloride 112 mmol/L (98-107); Creatinine, Serum 1.23 mg/dL (0.70-1.30); EST Glomerular Filtration Rate 61 mL/min (>60); Est Glom Filt Rate - Afr Amer 73 mL/min (>60); Globulin 3.3 g/dL (2.2-4.2); Glucose 109 mg/dL (74-106); Potassium 4.3 mmol/L (3.5-5.1); Protein, Total 6.8 g/dL (6.4-8.2); Sodium Level 141 mmol/L (136-145)
[2024-03-07 04:07] LABS: AFP, Tumor Marker 2.7 ng/mL (0.0-8.4)
== END | disposition home or self-care (01) ==
LOC: LAB 16:21
PROVIDERS: PCP Family Medicine; Referring Provider Internal Medicine Hematology & Oncology; Visit Provider Internal Medicine Hematology & Oncology
DX: R91.1 Solitary pulmonary nodule (principal)
CPT/HCPCS: 36415; 80053; 82105; 85025

== ENCOUNTER → 2024-06-24 | Outpatient (CLI) | payer MEDICARE, OTHER, SELFPAY ==
[2024-06-24 12:26] LABS: Absolute Lymphocyte Count 1.92 X10^3/uL (0.83-4.51); Absolute Neutrophil Count 4.1 X10^3/uL (2.0-7.7); Basophil# 0.03 X10^3/uL; Basophil% 0.4 % (0-1); Eosinophil# 0.16 X10^3/uL; Eosinophils% 2.3 % (0-5); Hematocrit 46.2 % (40-54); Hemoglobin 15.4 g/dL (13.0-16.5); Lymphocyte # 1.92 X10^3/ul (0.83-4.51); Lymphocyte % 27.5 % (19-41); Mean Corp Hgb Conc 33.3 g/dL (32-36); Mean Corpuscular Hgb 30.3 pg (27.0-32.0); Mean Corpuscular Volume 90.9 fL (80-94); Mean Platelet Vol. 12.3 fl (6.2-12.0); Monocyte# 0.75 X10^3/uL; Monocyte% 10.7 % (0-10); NRBC Flagged by Analyzer 0 % (0-5); Neutrophil # 4.12 X10^3/uL (2.7-7.7); Platelet Count 131 K/mm3 (150-450); RBC Distribution Width CV 13.2 % (11.6-14.6); Red Blood Count 5.08 M/mm3 (4.6-6.2)
[2024-06-24 12:30] LABS: International Normalized Ratio 1.1; Partial Thromboplast Time 30.3 Seconds (24.1-36.2); Prothrombin Time (Protime)PT. 14.2 SECONDS (11.7-14.9)
[2024-06-24 13:51] LABS: ALB/GLOB Ratio 0.9 RATIO (0.9-2.4); AST(SGOT) 44 U/L (15-37); Alanine Aminotransfer ALT/SGPT 95 U/L (16-61); Albumin, Serum 3.4 g/dL (3.2-5.0); Alkaline Phosphatase 92 U/L (45-117); Anion Gap 6 (5-15); BUN 19 mg/dL (7-18); BUN/Creat Ratio 17.6 RATIO (10-20); Calcium,Total 9.4 mg/dL (8.5-10.1); Chloride 108 mmol/L (98-107); Creatinine, Serum 1.08 mg/dL (0.70-1.30); EST Glomerular Filtration Rate 70 mL/min (>60); Est Glom Filt Rate - Afr Amer 85 mL/min (>60); Globulin 3.6 g/dL (2.2-4.2); Glucose 118 mg/dL (74-106); Potassium 4.1 mmol/L (3.5-5.1); Rheumatoid Factor < 10.0 IU/mL (<15); Sodium Level 139 mmol/L (136-145)
== END | disposition home or self-care (01) ==
PROVIDERS: PCP Family Medicine; Referring Provider Internal Medicine Gastroenterology; Visit Provider Internal Medicine Gastroenterology
DX: B19.10 Unspecified viral hepatitis B without hepatic coma (principal)
CPT/HCPCS: 36415; 80053; 82105; 85025; 85610; 85730; 86431

== ENCOUNTER → 2024-07-23 | Outpatient (CLI) | payer MEDICARE, OTHER, SELFPAY ==
--- NOTE | 2024-07-23 08:12 | US_ITS ---
STUDY: ABDOMINAL ULTRASOUND - RIGHT UPPER QUADRANT REASON FOR VISIT: Male, 79 years old elevated LFTs TECHNIQUE: Ultrasound evaluation of the right upper quadrant was performed with real-time and static walsh-scale imaging. TECHNICAL QUALITY: Limited. Examination limited due to obesity. COMPARISON: 01/27/2024 FINDINGS: Liver: The liver measures 17.2 cm. There is increased echogenicity consistent with fatty infiltration. The bile ducts are within normal limits. There is hepatic color flow. The direction of portal flow is hepatopetal. There is no demonstrated mass lesion. Gallbladder: Normal distended gallbladder. The gallbladder wall measures 2.4 mm. There is a negative sonographic Castro''s sign. There is no pericholecystic fluid. There are multiple echogenic structures within the gallbladder, consistent with multiple gallstones. Common Bile Duct (C.B.D.): The common bile duct measures 2.6 mm. Pancreas: There is nonvisualization of the pancreas. Right Kidney: Normal size of the right kidney. The right kidney measures 11.0 x 5.8 x 5.1 cm. Normal renal cortex. The right cortex measures 1.2 cm. There is no demonstrated renal mass or cyst. There is no right hydronephrosis. US/Abdomen Limited IMPRESSION: Hepatomegaly with fatty infiltration of liver, no discrete lesion Cholelithiasis, no sonographic evidence of acute cholecystitis Electronically Signed: Jeff Jacobson MD at 8:45 EST ,
== END | disposition home or self-care (01) ==
LOC: US 08:11
PROVIDERS: PCP Family Medicine; Referring Provider Internal Medicine Gastroenterology; Visit Provider Internal Medicine Gastroenterology
DX: K74.60 Unspecified cirrhosis of liver (principal)
CPT/HCPCS: 76705

== ENCOUNTER → 2025-01-08 | Outpatient (CLI) | payer MEDICARE, OTHER, SELFPAY ==
[2025-01-08 12:47] LABS: Prothrombin Time (Protime)PT. 13.3 SECONDS (11.7-14.9)
[2025-01-08 12:48] LABS: Partial Thromboplast Time 29.2 Seconds (24.1-36.2)
[2025-01-08 12:51] LABS: Hematocrit 45.8 % (40-54); Hemoglobin 15.5 g/dL (13.0-16.5); Mean Corp Hgb Conc 33.8 g/dL (32-36); Mean Corpuscular Hgb 30.2 pg (27.0-32.0); Mean Corpuscular Volume 89.3 fL (80-94); Platelet Count 119 K/mm3 (150-450); RBC Distribution Width CV 14.8 % (11.6-14.6); RBC Distribution Width SD 49.1 fl (35.1-43.9); Red Blood Count 5.13 M/mm3 (4.6-6.2); White Blood Count 8.1 K/mm3 (4.4-11.0)
[2025-01-08 13:30] LABS: ALB/GLOB Ratio 1.4 RATIO (0.9-2.4); AST(SGOT) 27 U/L (<=37); Alanine Aminotransfer ALT/SGPT 18 U/L (<=46); Albumin, Serum 3.9 g/dL (3.4-4.8); Alkaline Phosphatase 93 U/L (40-129); Anion Gap 10 (5-15); BUN 19 mg/dL (4-19); BUN/Creat Ratio 16.5 RATIO (10-20); Calcium,Total 8.9 mg/dL (7.6-11.0); Carbon Dioxide 24.5 mmol/L (21.0-32.0); Chloride 107 mmol/L (98-108); Creatinine, Serum 1.12 mg/dL (0.70-1.20); EST Glomerular Filtration Rate 67 (>60); Globulin 2.8 g/dL (2.2-4.2); Glucose 116 mg/dL (70-99); Potassium 4.4 mmol/L (3.3-5.1); Protein, Total 6.7 g/dL (5.9-8.4); Sodium Level 142 mmol/L (133-145); Total Bilirubin 0.98 mg/dL (0.00-1.30)
[2025-01-08 13:41] LABS: Hepatitis B Surface Antibody Nonreactive
[2025-01-10 04:07] LABS: AFP, Tumor Marker 2.2 ng/mL (0.0-8.4)
== END | disposition home or self-care (01) ==
LOC: MTLAB 09:58
PROVIDERS: PCP Family Medicine; Referring Provider Internal Medicine Gastroenterology; Visit Provider Internal Medicine Gastroenterology
DX: B18.1 Chronic viral hepatitis B without delta-agent (principal)
CPT/HCPCS: 36415; 80053; 82105; 85027; 85610; 85730; 86706

== ENCOUNTER 2025-01-31 10:54 | Observation (INO) | payer MEDICARE, OTHER, SELFPAY ==
[2025-01-31] VITALS (9 sets, daily range): BP systolic 159–183; BP diastolic 74–98; PULSE 54–59; RESP 16–21; TEMP 36.3–36.6; O2SAT 96–98; BMI 36.8; BMI 36.9
--- NOTE | 2025-01-31 11:55 | CT_ITS ---
PROCEDURE: BRAIN/HEAD WITHOUT CONTRAST 01/31/2025 REASON FOR EXAM: HEADACHE TECHNIQUE: Head CT without intravenous contrast. Coronal and Sagittal reconstruction series were provided. One or more dose reduction techniques were used (e.g., Automated exposure control, adjustment of the mA and/or kV according to patient size, use of iterative reconstruction technique. RADIATION DOSE SUMMARY: CTDlvol: 44.99 mGy DLP: 812.98 mGycm COMPARISON: None FINDINGS: Brain: Low density in the periventricular white matter suggests mild chronic small vessel ischemic changes. CSF Spaces: Mild generalized cerebral atrophy Sinuses/Mastoids: Clear at visualized levels Bones: Unremarkable CT/Brain/Head without Contrast IMPRESSION: CHRONIC CHANGES. NO ACUTE FINDINGS. Reading Location: [place] [id number]
--- NOTE | 2025-01-31 11:57 | EKG12_ITS ---
Test Reason : SOB Blood Pressure : */* mmHG Vent. Rate : 54 BPM Atrial Rate : 54 BPM P-R Int : 164 ms QRS Dur : 94 ms QT Int : 466 ms P-R-T Axes : 21 27 27 degrees QTcB Int : 441 ms Sinus bradycardia Otherwise normal ECG Confirmed by Herrera Daily ([id number]), design editor ELOINA CORONADO ([id number]) on 02/03/2025 10:49:12 AM Referred By: Confirmed By: Herrera Daily
[2025-01-31] MEDS: 0.9% Normal Saline (1000mL) 1,000 ML 999 ML IV (12:22)
[2025-01-31] MEDS: Meclizine HCl 25 MG Tablet PO (12:23)
--- NOTE | 2025-01-31 12:25 | RAD_ITS ---
PROCEDURE: CHEST 1 VIEW (PORTABLE) 01/31/2025 REASON FOR EXAM: HYPERTENSION TECHNIQUE: Frontal view of the chest. COMPARISON: None FINDINGS: Hardware: EKG electrodes are seen. Heart: Borderline cardiomegaly. Lungs: Hyperinflation. No acute infiltrate is seen. Bones: Degenerative changes are identified within the thoracic spine. Other: RAD/Chest 1 View (Portable) IMPRESSION: Hyperinflation. No acute infiltrate is seen. Reading Location: [facility]-
--- NOTE | 2025-01-31 12:28 | EX.ED.DYSGE1 ---
HPI History of Present Illness Chief Complaint: Hypertension Informant: patient and spouse/S.O. Narrative Narrative: 79-year-old male presenting to the emergency room with chief complaint of dizziness and hypertension. Patient states that recently he was started on losartan for better blood pressure control. He was previously on metoprolol which was continued but due to bradycardia was not increased any further. Today he was to come to the hospital and have an MRI of his abdomen. Therefore he did not take his medications. States that since he woke up he started feeling off balance and a dizzy like sensation when he walks. States he feels like he is moving his arms and legs normally. He does not feel confused or any change in vision. States is not really a sense that the room is spinning but he notices when he walks he feels like he should hold onto something. After his MRI this morning he went home and noted that his blood pressure was elevated in the 190/110 range so he took his blood pressure medications about 1 hour before my examination. He denies any nausea vomiting. No recent infections. He does note a slight headache at the top of his head. [facility] Medical History Chronic hepatitis B virus infection Gout Lung nodule Hypothyroidism Essential (primary) hypertension Hyperlipemia, mixed GERD (gastroesophageal reflux disease) COPD (chronic obstructive pulmonary disease) Home Medications ?Medication ?Instructions ?Recorded ?Last Taken ?Type omeprazole 20 mg capsule,delayed 20 mg PO DAILY 08/22/17 01/31/25 History release allopurinol 300 mg tablet 300 mg PO DAILY 03/05/24 01/31/25 History entecavir 1 mg tablet 1 mg PO DAILY 03/05/24 01/31/25 History levothyroxine 50 mcg tablet 50 mcg PO DAILY 03/05/24 01/31/25 History metoprolol tartrate 25 mg tablet 25 mg PO BID 01/31/25 01/31/25 History valsartan 40 mg tablet 40 mg PO DAILY 01/31/25 01/31/25 History Allergy/AdvReac Type Severity Reaction Status Date / Time No Known Allergies Allergy Verified 01/31/25 10:56 Family History Father Diabetes Surgical History History of back surgery (~05/2016) Social History Smoking Status: Former smoker Tobacco: How many years used: 25 alcohol intake: current alcohol intake frequency: a few times a month Alcohol type: beer substance use type: does not use caffeine: Yes Type: tea what type of physical activity do you participate in: none seatbelt use: always do you feel safe at home: Yes ROS ROS ED Constitutional Constitutional ED: Denies chills, fever(s) or weight loss Eyes Eyes: Denies change in vision or diplopia ENT ENT ED: Denies ear pain, rhinorrhea or sore throat Cardiovascular Cardiovascular: Denies chest pain, orthopnea, palpitations or racing heartbeat Respiratory/Chest Respiratory/Chest: Denies cough, dyspnea or orthopnea Gastrointestinal Gastrointestinal: Denies abdominal pain, diarrhea, nausea or vomiting Genitourinary Genitourinary ED: Denies dysuria, hematuria or urinary frequency Musculoskeletal Musculoskeletal: Denies arthralgias or myalgias Integumentary Denies abscess or rash Neurologic Neurologic: Reports headache(s) and other Details: Dizziness ; Denies paresthesias or weakness Psychiatric Psychiatric: Denies anxiety, depression, suicidal ideation or suicidal thoughts Endocrine Endocrinology: Denies polydipsia, polyphagia or polyuria Allergic/Immunologic Allergic/Immunologic ED: Denies mouth swelling, tongue swelling or urticaria EXAM Physical Exam Const Vital Signs: 01/31/25 10:54 01/31/25 12:29 01/31/25 12:54 Temperature 97.8 F Temperature Source Oral Pulse Rate 57 L 54 L Respiratory Rate 18 16 Respiratory Effort Normal Respiratory Pattern Normal Blood Pressure 181/82 H 159/83 H Blood Pressure Mean 115 108 Pulse Ox 96 96 Oxygen Delivery Method Room Air Room Air 01/31/25 14:00 Temperature Temperature Source Pulse Rate 58 L Respiratory Rate 21 H Respiratory Effort Respiratory Pattern Blood Pressure 164/98 H Blood Pressure Mean 120 Pulse Ox 97 Oxygen Delivery Method Room Air Positive well nourished and well developed General Appearance ED: well developed and NAD HEENT Reports normocephalic, head/scalp atraumatic and moist mucous membranes Eyes PERRL and EOMs intact bilaterally Neck no lymphadenopathy, supple and no JVD Resp normal respiratory effort and clear to auscultation bilaterally Cardio regular rate, regular rhythm and no murmurs GI normal to inspection, nondistended, normoactive bowel sounds and non-tender Palpation: soft Back/Spine no CVA tenderness and normal ROM Extremity normal to inspection General Extremety ED: Negative for edema General Extremity: Negative for edema Neuro oriented x3 and CN's II-XII intact bilaterally Neuro Narrative: I do not appreciate any nystagmus. When I have him turn his head from right and left he states his symptomology is worse. Sensorium / Orientation: alert Motor Exam: strength 5/5 throughout Psych mental status grossly normal Mood & Affect: Negative for depressed or tearful Skin no rashes or lesions noted and no wounds MDM MDM MDM Narrative Medical decision making narrative: Differential diagnosis includes but not limited to hypertensive urgency TIA benign positional vertigo central vertigo electrolyte abnormalities Basic blood work was obtained shows a glucose of 111 otherwise unremarkable urinalysis negative. My independent interpretation of the chest x-ray is no acute process. EKG is sinus bradycardia at a rate of 54. Noncontrasted head CT shows no acute findings. 2 sets of cardiac enzymes are negative at 16 and 15. CTA head and neck demonstrates no LVO or dissection or aneurysm's. Patient has remained with the degree of hypertension but not in an emergent treatable zone. Currently 164/98. We got him up and ambulated him and the patient states he still does not feel like he has his sea legs. He states he does wonder if it is more because he has been in the bed. Hide his NIH is 0 however that still does not rule out the possibility of a posterior circulatory stroke. Spoke with the patient and we are going to discuss with the hospitalist regarding admission for MRI. History & Record Review Discussion w/independent historian: Patient and Family Additional record(s) reviewed:: Prior outpatient record, Prior ED visit and Prior labs Lab Data Attestation: I reviewed the patient's lab results. Labs: Laboratory Results - last 24 hr 01/31/25 01/31/25 01/31/25 11:20 13:00 13:41 WBC 7.3 RBC 5.15 Hgb 15.8 Hct 46.4 MCV 90.1 MCH 30.7 MCHC 34.1 RDW Std Deviation 47.8 H RDW Coeff of Tima 14.6 Plt Count 104 L MPV 11.6 Immature Gran % (Auto) 0.300 Neut % (Auto) 64.7 Lymph % (Auto) 23.3 [place] % (Auto) 8.7 Eos % (Auto) 2.2 Baso % (Auto) 0.8 Absolute Neuts (auto) 4.7 Absolute Lymphs (auto) 1.71 Nucleated RBC % 0 Sodium 139 Potassium 4.2 Chloride 107 Carbon Dioxide 23.1 Anion Gap 9 BUN 18 Creatinine 1.05 Estim Creat Clear Calc 76.33 Est GFR (MDRD) Non-Af 73 BUN/Creatinine Ratio 17.2 Glucose 111 H Calcium 8.6 Troponin T High Sens 16 Troponin T Hi Sens 2 Hr 15 Urine Color Yellow Urine Clarity Clear Urine pH 6.0 Ur Specific [place] 1.020 Urine Protein Negative Urine Glucose (UA) Normal Urine Ketones Negative Urine Occult Blood 50 H Urine Nitrite Negative Urine Bilirubin Negative Urine Urobilinogen Normal Ur Leukocyte Esterase Negative Urine RBC 0-5 SEEN Urine WBC 0-5 SEEN Ur Squamous Epith Cells 0 SEEN Urine Bacteria 0 SEEN Urine Mucus 0 SEEN Radiography Diagnostic Testing: Clinical Impression(s) from Imaging Studies Brain CT 01/31/25 11:55 IMPRESSION: CHRONIC CHANGES. NO ACUTE FINDINGS. Reading Location: [place] [id number] Chest X-Ray 01/31/25 12:25 IMPRESSION: Hyperinflation. No acute infiltrate is seen. Reading Location: [place] [address] Head/Neck CTA 01/31/25 14:24 IMPRESSION: No acute large vessel occlusions or high grade stenosis. No vascular malformations or dominant aneurysms. Reading Location: [facility] EKG Initial EKG: Attestation: I personally reviewed and interpreted this EKG as follows: Comments: Sinus bradycardia ventricular rate of 54 bpm Management Discussion w/another healthcare provider: Hospitalist (Dr Bhandari) Discharge Plan Dx/Rx/DC Orders Clinical Impression: Ataxia, Hypertension Disposition Disposition: Acute Care Hospital [facility] NIHSS NIHSS 1a. Level of Consciousness: 0 - Alert; keenly responsive 1b. LOC Questions: 0 - Answers BOTH questions correctly 1c. LOC Commands: 0 - Performs BOTH tasks correctly 2. Best Gaze: 0 - Normal 3. Visual: 0 - No visual loss 4. Facial Palsy: 0 - Normal symmetrical movements 5a. Left Arm: 0 - No drift; arm holds 90 (or 45) degrees for full 10 seconds 5b. Right Arm: 0 - No drift; arm holds 90 (or 45) degrees for full 10 seconds 6a. Left Le - No drift; leg holds 30-degree position for full 5 seconds 6b. Right Le - No drift; leg holds 30-degree position for full 5 seconds 7. Limb Ataxia: 0 - Absent 8. Sensory: 0 - Normal; no sensory loss 9. Best Language: 0 - No aphasia; normal 10. Dysarthria: 0 - Normal 11. Extinction and Inattention: 0 - No abnormality Total: 0
[2025-01-31 12:56] LABS: Absolute Lymphocyte Count 1.71 X10^3/uL (0.83-4.51); Absolute Neutrophil Count 4.7 X10^3/uL (2.0-7.7); Basophil# 0.06 X10^3/uL; Basophil% 0.8 % (0-1); Eosinophil# 0.16 X10^3/uL; Eosinophils% 2.2 % (0-5); Hematocrit 46.4 % (40-54); Hemoglobin 15.8 g/dL (13.0-16.5); Lymphocyte # 1.71 X10^3/ul (0.83-4.51); Lymphocyte % 23.3 % (19-41); Mean Corp Hgb Conc 34.1 g/dL (32-36); Mean Corpuscular Hgb 30.7 pg (27.0-32.0); Mean Corpuscular Volume 90.1 fL (80-94); Mean Platelet Vol. 11.6 fl (6.2-12.0); Monocyte# 0.64 X10^3/uL; Monocyte% 8.7 % (0-10); NRBC Flagged by Analyzer 0 % (0-5); Neutrophil # 4.74 X10^3/uL (2.7-7.7); Neutrophil % 64.7 % (47-70); Platelet Count 104 K/mm3 (150-450); RBC Distribution Width CV 14.6 % (11.6-14.6); RBC Distribution Width SD 47.8 fl (35.1-43.9); Red Blood Count 5.15 M/mm3 (4.6-6.2); White Blood Count 7.3 K/mm3 (4.4-11.0)
[2025-01-31 12:57] LABS: Anion Gap 9 (5-15); BUN 18 mg/dL (4-19); BUN/Creat Ratio 17.2 RATIO (10-20); Calcium,Total 8.6 mg/dL (7.6-11.0); Carbon Dioxide 23.1 mmol/L (21.0-32.0); Chloride 107 mmol/L (98-108); Creatinine, Serum 1.05 mg/dL (0.70-1.20); EST Glomerular Filtration Rate 73 (>60); Estimated Creatinine Clearance 76.33 ml/min (50-250); Glucose 111 mg/dL (70-99); Potassium 4.2 mmol/L (3.3-5.1); Sodium Level 139 mmol/L (133-145)
[2025-01-31 12:59] LABS: Troponin T High Sensitivity 16 ng/L (<=22)
[2025-01-31 13:27] LABS: Bacteria 0 SEEN /hpf (None Seen); Mucous, Urine 0 SEEN /hpf (<or=2+); Squamous Epithelial Cells - UA 0 SEEN /hpf (0-5)
[2025-01-31 13:44] LABS: Color, Urine Yellow (Yellow); Glucose, Dipstick Normal (Normal); Ketone-Dipstick Negative (Negative); Leukocyte Esterase-Dipstick Negative /ul (Negative); Nitrite-Dipstick Negative (Negative); Occult Blood-Urine 50 /ul (Negative); Protein-Dipstick Negative (Negative); Urine Bilirubin Dipstick Negative (Negative); Urine Clarity Clear (Clear); Urine Urobilinogen Normal (Normal)
[2025-01-31 14:02] LABS: Red Blood Cells-Urine 0-5 SEEN /hpf (0-5); White Blood Cells 0-5 SEEN /hpf (0-5)
--- NOTE | 2025-01-31 14:24 | CT_ITS ---
PROCEDURE: CTA HEAD AND NECK W/ CONTRAST 01/31/2025 REASON FOR EXAM: ATAXIA TECHNIQUE: CTA imaging of the head and neck from the aortic arch to the skull vertex with out contrast and with intravenous contrast. Multiplanar and multisequence images were obtained. CONTRAST: 100ml of Isovue 370 One or more dose reduction techniques were used (e.g., Automated exposure control, adjustment of the mA and/or kV according to patient size, use of iterative reconstruction technique). RADIATION DOSE SUMMARY: DLP: 808 mGycm COMPARISON: none FINDINGS: The aortic arch demonstrates a type I configuration. The ostia of the great vessels are patent. There is conventional branching. The right CCA is patent. There is no significant stenosis of the right carotid bifurcation by NASCET criteria. The cervical right ICA is patent. The right MCA and right GARCÍA appear patent. There is no large vessel occlusion. The left CCA is patent. There is no significant stenoses at the left carotid bifurcation by NASCET criteria. The cervical left ICA is patent. The left MCA and left GARCÍA appear patent. There is no large vessel occlusion. The right vertebral artery arises from the right subclavian artery. The left vertebral artery arises from the left subclavian artery. Both vertebral arteries are patent. Both vertebral arteries join to form the patent basilar artery. Both posterior cerebral arteries arise from the tip of the basilar. Both proximal [employer] segments are patent. There is no large vessel occlusion. There is no enhancing intracranial mass. Shotty cervical lymph nodes are identified. The thyroid gland is heterogeneous. The lung apices demonstrate no pneumothorax. No destructive osseous abnormalities identified. CT/CTA Head AND Neck W/ Contrast IMPRESSION: No acute large vessel occlusions or high grade stenosis. No vascular malformati ons or dominant aneurysms. Reading Location: [id number]
[2025-01-31 14:28] LABS: Troponin T High Sens 2 HR 15 ng/L (<=22)
--- NOTE | 2025-01-31 14:46 | PCM.HP.STD ---
HPI - General General Date of Admission: 01/31/25 Date of Service: 01/31/25 Chief Complaint: Dizziness HPI Narrative QUENTIN LEWIS, is a 79 M with past medical history of hypertension, chronic hepatitis B, COPD, GERD, who presents to the ED with concerns regarding ongoing lightheadedness and dizziness since this morning and was noted to have severe hypertension. Per the patient at the time of waking up this morning he noted dizziness and lightheadedness with some difficulty walking and sensation of being off balance. He was planned for an MRI abdomen for his history of cirrhosis of liver and hence did not take his medications for blood pressure. After returning home from his MRI around 10 AM he checked his pressures and it was systolics of 200s by diastolics in 110s. Concerned about his pressures he visited the ED. No recent ear infection or any fevers. Today morning his blood pressure was 188 1/82, at the time of presentation in the ED it was 159/83 with a pulse rate of 54 and he was satting well on room air His WBC was 7.3, hemoglobin of 15.8, platelet count of 104, sodium 139, serum potassium of 4.2, chloride of 107, carbon for 23.1, BUN of 18, creatinine of 1.05, glucose of 111, troponin T high-sensitivity was 16, and 2:15 hours UA showed 50 occult blood but negative for infection. [facility] Medical History Chronic hepatitis B virus infection Gout Lung nodule Hypothyroidism Essential (primary) hypertension Hyperlipemia, mixed GERD (gastroesophageal reflux disease) COPD (chronic obstructive pulmonary disease) Home Medications ?Medication ?Instructions ?Recorded ?Last Taken ?Type omeprazole 20 mg capsule,delayed 20 mg PO DAILY 08/22/17 01/31/25 History release allopurinol 300 mg tablet 300 mg PO DAILY 03/05/24 01/31/25 History entecavir 1 mg tablet 1 mg PO DAILY 03/05/24 01/31/25 History levothyroxine 50 mcg tablet 50 mcg PO DAILY 03/05/24 01/31/25 History metoprolol tartrate 25 mg tablet 25 mg PO BID 01/31/25 01/31/25 History valsartan 40 mg tablet 40 mg PO DAILY 01/31/25 01/31/25 History Allergy/AdvReac Type Severity Reaction Status Date / Time No Known Allergies Allergy Verified 01/31/25 10:56 Family History Father Diabetes Surgical History History of back surgery (~05/2016) Social History Smoking Status: Former smoker Tobacco: How many years used: 25 alcohol intake: current alcohol intake frequency: a few times a month Alcohol type: beer substance use type: does not use caffeine: Yes Type: tea what type of physical activity do you participate in: none seatbelt use: always do you feel safe at home: Yes ROS Review of Systems ROS Unobtainable: Denies due to encephalopathy, due to endotracheal tube, due to mental condition, due to mental status or other Constitutional Constitutional: Reports malaise, night sweats and weakness; Denies anorexia, change in weight, chills, fatigue, fever(s) or other Eyes Eyes: Denies blurry vision, change in eye color, change in vision, discharge from eye(s), double vision, erythema, eye pain, loss of vision or other ENT HEENT: Denies abnormal hearing, dysphagia, ear pain, epistaxis, headache(s), hearing loss, nasal congestion, nasal discharge, post nasal drip, sinus pressure, sore throat or other Cardiovascular Cardiovascular: Denies chest pain, claudication, dyspnea on exertion, edema, lightheadedness, orthopnea, palpitations, paroxysmal nocturnal dyspnea, rapid heart rate, syncope or other Respiratory/Chest Respiratory/Chest: Denies cough, dyspnea, excessive phlegm production, hemoptysis, productive cough, shortness of breath at rest, shortness of breath with exertion, wheezing or other Gastrointestinal Gastrointestinal: Denies abdominal pain, coffee ground emesis, constipation, diarrhea, dyspepsia, hematemesis, hematochezia, loose stools, melena, nausea, vomiting or other Genitourinary Genitourinary: Denies burning urination, difficulty urinating, dysuria, hematuria, nocturia, urinary frequency, urinary hesitancy, urinary incontinence, urinary urgency or other Musculoskeletal Musculoskeletal: Denies arthralgias, back pain, joint pain, joint stiffness, joint swelling, myalgias, neck pain or other Neurologic Neurologic: Reports dizziness and headache(s); Denies focal weakness, numbness or paresthesias Psychiatric Psychiatric: Denies anxiety, depression, homicidal ideation, suicidal ideation or other Endocrine Endocrinology: Denies change in body appearance, cold intolerance, excessive sweating, heat intolerance, polydipsia, polyuria or other Vital Signs Vital Signs Vital Signs: 01/31/25 10:54 01/31/25 12:29 01/31/25 12:54 Temperature 97.8 F Temperature Source Oral Pulse Rate 57 L 54 L Respiratory Rate 18 16 Respiratory Effort Normal Respiratory Pattern Normal Blood Pressure 181/82 H 159/83 H Blood Pressure Mean 115 108 Pulse Ox 96 96 Oxygen Delivery Method Room Air Room Air 01/31/25 14:00 Temperature Temperature Source Pulse Rate 58 L Respiratory Rate 21 H Respiratory Effort Respiratory Pattern Blood Pressure 164/98 H Blood Pressure Mean 120 Pulse Ox 97 Oxygen Delivery Method Room Air Weight Weight: 264 lb Body Mass Index (BMI) 36.8 Physical Exam Const alert and oriented x3 HEENT normocephalic and head/scalp atraumatic Eyes PERRL and EOMs intact bilaterally Neck no lymphadenopathy and supple Resp normal respiratory effort and no retractions Cardio regular rate and regular rhythm GI normal to inspection, nondistended, normoactive bowel sounds Extremity normal to inspection and full ROM Neuro oriented x3, CN's II-XII intact bilaterally, moves all extremities and no focal motor deficits Neuro Narrative: Bilateral upper extremity strength normal, normal sensation, no difficulty or focal weakness, Romberg negative Sensorium / Orientation: awake and alert Coordination / Balance: [id number] test normal Motor Exam: strength 5/5 throughout Psych affect normal Results Medical Records Data Attestation: I reviewed the patient's medical records Lab / Micro Data Attestation: I reviewed the patient's lab results. 01/31/25 11:20 01/31/25 11:20 Labs: Laboratory Results - last 24 hr 01/31/25 11:20: WBC 7.3, RBC 5.15, Hgb 15.8, Hct 46.4, MCV 90.1, MCH 30.7, MCHC 34.1, RDW Std Deviation 47.8 H, RDW Coeff of Tima 14.6, Plt Count 104 L, MPV 11.6, Immature Gran % (Auto) 0.300, Neut % (Auto) 64.7, Lymph % (Auto) 23.3, [place] % (Auto) 8.7, Eos % (Auto) 2.2, Baso % (Auto) 0.8, Absolute Neuts (auto) 4.7, Absolute Lymphs (auto) 1.71, Nucleated RBC % 0, Sodium 139, Potassium 4.2, Chloride 107, Carbon Dioxide 23.1, Anion Gap 9, BUN 18, Creatinine 1.05, Estim Creat Clear Calc 76.33, Est GFR (MDRD) Non-Af 73, BUN/Creatinine Ratio 17.2, Glucose 111 H, Calcium 8.6, Troponin T High Sens 16 01/31/25 13:00: Urine Color Yellow, Urine Clarity Clear, Urine pH 6.0, Ur Specific [place] 1.020, Urine Protein Negative, Urine Glucose (UA) Normal, Urine Ketones Negative, Urine Occult Blood 50 H, Urine Nitrite Negative, Urine Bilirubin Negative, Urine Urobilinogen Normal, Ur Leukocyte Esterase Negative, Urine RBC 0-5 SEEN, Urine WBC 0-5 SEEN, Ur Squamous Epith Cells 0 SEEN, Urine Bacteria 0 SEEN, Urine Mucus 0 SEEN 01/31/25 13:41: Troponin T Hi Sens 2 Hr 15 Imaging Radiology Impression Brain CT 01/31/25 11:55 IMPRESSION: CHRONIC CHANGES. NO ACUTE FINDINGS. Reading Location: [place] [id number] Chest X-Ray 01/31/25 12:25 IMPRESSION: Hyperinflation. No acute infiltrate is seen. Reading Location: [place] [id number] Assessment & Plan Assessment/Plan (1) Hypertension: QUALIFIERS: Hypertension type: essential hypertension Qualified Code(s): I10 - Essential (primary) hypertension; I10 - Essential (primary) hypertension; I10 - Essential (primary) hypertension PLAN: Plan 79-year-old man with history of hypertension, chronic hepatitis B, cirrhosis with portal hypertension, GERD, dyslipidemia, lung nodule, presents to the ED with concerns regarding dizziness in the setting of elevated blood pressures. Likely reason for his elevated blood pressures was missing his blood pressure medications this morning. There are no features of acute stroke at this time and his neurological examination is essentially normal. This could be a posterior circulation TIA and he is being admitted under observation to PCU for MRI brain # Hypertensive emergency - Presentation is consistent with hypertensive emergency with elevated pressures and neurological changes - Close monitoring of blood pressure, continue home medications for now - Consider switching losartan to nighttime dose as able to result in better blood pressure control - Dietitian recommendation for proper education regarding dietary changes - Admit to PCU for close neurological monitoring - PT/OT evaluation for balance - Continue valsartan and metoprolol # Suspected posterior TIA - NIHSS 0 in the ED - Primary imaging with CT head is negative - MRI brain for further evaluation - Echocardiogram - Close neurological checks in the PCU - Will hold off aspirin and statin at this time as suspicion is low # Chronic hepatitis B - Continue entecavir # Cirrhosis with portal hypertension # Thrombocytopenia - Noted, compensated # Gout - Continue home medications # DVT prophylaxis - Low to moderate risk - Encourage mobilization # COPD - Noted, no active concerns # Pulmonary nodule - Noted, no active concerns # Code - Full code
--- NOTE | 2025-01-31 14:57 | CASEMGMT ---
Care Management Face to Face with patient for initial transition planning/care coordination assessment in the ED.? This singer songwriter introduced self and role at [facility]. Patient alert and oriented. Patient willing to participate in assessment and is able to answer all questions appropriately.? Care providers, pharmacy, and demographics verified. Admitting Diagnosis: ?Ataxia Other diagnosis history: ?COPD, GERD, Hyperlipemia, hypothyroidism, hypertension PCP: ?Jasmeet Specialists: Xin Preferred Pharmacy: [facility] Insurance: ?Medicare Prescription Benefit: ?Yes Living Will/HPOA: Does not have completed, may want to do while admitted LNOK: Living Arrangements: ?Lives with in one story home, independent with ADLs and IADLs Transportation: ?patient drives DME: ?None HHC: ?None SNF/Rehab: ?None Community Resources: ?None Behavioral Health History: None Patient goals: Patient wishes to discharge home, denies need for home health care at this time. Patient denies any further needs or concerns at this time. Disposition Plan: admission to acute; RN CM/SW to follow for discharge planning needs that may arise. Jyotsna Lopez, BROOM HANDLE DIPPER, WEB ADMINISTRATOR
[2025-01-31 16:11] LABS: Hemoglobin A1c 6.2 % (<=5.6)
[2025-01-31] MEDS: 0.9% Saline Lock 10 ML Syringe IV (19:56)
[2025-02-01] VITALS (9 sets, daily range): BP systolic 148–169; BP diastolic 66–90; PULSE 64–78; RESP 16; TEMP 36.7–36.8; O2SAT 94–98; BMI 36.9
[2025-02-01 05:18] LABS: Prothrombin Time (Protime)PT. 13.7 SECONDS (11.7-14.9)
[2025-02-01 05:19] LABS: Absolute Lymphocyte Count 1.99 X10^3/uL (0.83-4.51); Absolute Neutrophil Count 4.5 X10^3/uL (2.0-7.7); Basophil# 0.05 X10^3/uL; Basophil% 0.7 % (0-1); Eosinophil# 0.17 X10^3/uL; Eosinophils% 2.3 % (0-5); Hematocrit 43.7 % (40-54); Hemoglobin 14.7 g/dL (13.0-16.5); Lymphocyte # 1.99 X10^3/ul (0.83-4.51); Lymphocyte % 26.6 % (19-41); Mean Corp Hgb Conc 33.6 g/dL (32-36); Mean Corpuscular Hgb 30.4 pg (27.0-32.0); Mean Corpuscular Volume 90.3 fL (80-94); Mean Platelet Vol. 11.6 fl (6.2-12.0); Monocyte# 0.76 X10^3/uL; Monocyte% 10.2 % (0-10); NRBC Flagged by Analyzer 0 % (0-5); Neutrophil # 4.47 X10^3/uL (2.7-7.7); Neutrophil % 59.8 % (47-70); POSITIVE COUNT YES; Platelet Count 97 K/mm3 (150-450); RBC Distribution Width CV 14.4 % (11.6-14.6); RBC Distribution Width SD 47.8 fl (35.1-43.9); Red Blood Count 4.84 M/mm3 (4.6-6.2); White Blood Count 7.5 K/mm3 (4.4-11.0)
[2025-02-01 05:41] LABS: Differential Indicated SCAN CRITERIA MET
[2025-02-01] MEDS: Levothyroxine 50 MCG Tablet PO (05:59)
[2025-02-01 06:29] LABS: ALB/GLOB Ratio 1.5 RATIO (0.9-2.4); AST(SGOT) 23 U/L (<=37); Alanine Aminotransfer ALT/SGPT 13 U/L (<=46); Albumin, Serum 3.4 g/dL (3.4-4.8); Alkaline Phosphatase 78 U/L (40-129); Anion Gap 11 (5-15); BUN 17 mg/dL (4-19); BUN/Creat Ratio 17.7 RATIO (10-20); Bilirubin, Direct 0.35 mg/dL (0.00-0.30); Calcium,Total 8.5 mg/dL (7.6-11.0); Carbon Dioxide 21.1 mmol/L (21.0-32.0); Chloride 107 mmol/L (98-108); Creatinine, Serum 0.98 mg/dL (0.70-1.20); EST Glomerular Filtration Rate 79 (>60); Estimated Creatinine Clearance 81.95 ml/min (50-250); Globulin 2.3 g/dL (2.2-4.2); Glucose 106 mg/dL (70-99); Phosphorus 3.2 mg/dL (2.7-4.5); Potassium 4.1 mmol/L (3.3-5.1); Protein, Total 5.8 g/dL (5.9-8.4); Sodium Level 140 mmol/L (133-145); Total Bilirubin 0.88 mg/dL (0.00-1.30)
[2025-02-01 07:23] LABS: Differential Comment SCANNED; Platelet Estimate MOD DEC (ADEQ)
--- NOTE | 2025-02-01 08:00 | PCM.PN.HOSP ---
Reason for Visit Reason for Visit: Diagnoses Essential (primary) hypertension (01/31/25) Objective Data Objective Data Vital Signs: Vital Signs Temp Pulse Resp BP Pulse Ox O2 Del Method 98.0 F 64 16 161/81 H 95 Room Air 02/01/25 06:00 02/01/25 06:00 02/01/25 06:00 02/01/25 06:00 02/01/25 06:00 02/01/25 06:00 Oxygen Delivery Method Room Air Weight: 264 lb 15.93 oz Body Mass Index (BMI) 36.9 Intake & Output: Intake and Output for Last 24 Hours 01/30/25 01/31/25 02/01/25 23:59 23:59 23:59 Intake Total 1000 / 1000 Balance 1000 / 1000 Lab / Micro Data 02/01/25 04:30 02/01/25 04:30 Labs: Laboratory Results - last 24 hr 01/31/25 11:20: WBC 7.3, RBC 5.15, Hgb 15.8, Hct 46.4, MCV 90.1, MCH 30.7, MCHC 34.1, RDW Std Deviation 47.8 H, RDW Coeff of Tima 14.6, Plt Count 104 L, MPV 11.6, Immature Gran % (Auto) 0.300, Neut % (Auto) 64.7, Lymph % (Auto) 23.3, [place] % (Auto) 8.7, Eos % (Auto) 2.2, Baso % (Auto) 0.8, Absolute Neuts (auto) 4.7, Absolute Lymphs (auto) 1.71, Nucleated RBC % 0, Sodium 139, Potassium 4.2, Chloride 107, Carbon Dioxide 23.1, Anion Gap 9, BUN 18, Creatinine 1.05, Estim Creat Clear Calc 76.33, Est GFR (MDRD) Non-Af 73, BUN/Creatinine Ratio 17.2, Glucose 111 H, Hemoglobin A1c 6.2 H, Calcium 8.6, Troponin T High Sens 16 01/31/25 13:00: Urine Color Yellow, Urine Clarity Clear, Urine pH 6.0, Ur Specific [place] 1.020, Urine Protein Negative, Urine Glucose (UA) Normal, Urine Ketones Negative, Urine Occult Blood 50 H, Urine Nitrite Negative, Urine Bilirubin Negative, Urine Urobilinogen Normal, Ur Leukocyte Esterase Negative, Urine RBC 0-5 SEEN, Urine WBC 0-5 SEEN, Ur Squamous Epith Cells 0 SEEN, Urine Bacteria 0 SEEN, Urine Mucus 0 SEEN 01/31/25 13:41: Troponin T Hi Sens 2 Hr 15 02/01/25 04:30: WBC 7.5, RBC 4.84, Hgb 14.7, Hct 43.7, MCV 90.3, MCH 30.4, MCHC 33.6, RDW Std Deviation 47.8 H, RDW Coeff of Tima 14.4, Plt Count 97 L, MPV 11.6, Immature Gran % (Auto) 0.400, Neut % (Auto) 59.8, Lymph % (Auto) 26.6, [place] % (Auto) 10.2 H, Eos % (Auto) 2.3, Baso % (Auto) 0.7, Absolute Neuts (auto) 4.5, Absolute Lymphs (auto) 1.99, Nucleated RBC % 0, Differential Comment SCANNED, Platelet Estimate MOD DEC, PT 13.7, INR 1.0, Sodium 140, Potassium 4.1, Chloride 107, Carbon Dioxide 21.1, Anion Gap 11, BUN 17, Creatinine 0.98, Estim Creat Clear Calc 81.95, Est GFR (MDRD) Non-Af 79, BUN/Creatinine Ratio 17.7, Glucose 106 H, Calcium 8.5, Phosphorus 3.2, Magnesium 2.0, Total Bilirubin 0.88, Direct Bilirubin 0.35 H, AST 23, ALT 13, Alkaline Phosphatase 78, Total Protein 5.8 L, Albumin 3.4, Globulin 2.3, Albumin/Globulin Ratio 1.5, TSH 2.530 Radiography Diagnostic Testing: Radiology Impression Brain CT 01/31/25 11:55 IMPRESSION: CHRONIC CHANGES. NO ACUTE FINDINGS. Reading Location: [facility] Chest X-Ray 01/31/25 12:25 IMPRESSION: Hyperinflation. No acute infiltrate is seen. Reading Location: [facility] Head/Neck CTA 01/31/25 14:24 IMPRESSION: No acute large vessel occlusions or high grade stenosis. No vascular malformations or dominant aneurysms. Reading Location: [facility] Assessment & Plan Assessment/Plan (1) Hypertension: QUALIFIERS: Hypertension type: essential hypertension Qualified Code(s): I10 - Essential (primary) hypertension; I10 - Essential (primary) hypertension; I10 - Essential (primary) hypertension PLAN: Plan 79-year-old man with history of hypertension, chronic hepatitis B, cirrhosis with portal hypertension, GERD, dyslipidemia, lung nodule, presents to the ED with concerns regarding dizziness in the setting of elevated blood pressures. Likely reason for his elevated blood pressures was missing his blood pressure medications this morning. There are no features of acute stroke at this time and his neurological examination is essentially normal. This could be a posterior circulation TIA and he is being admitted under observation to PCU for MRI brain # Hypertensive emergency - Presentation is consistent with hypertensive emergency with elevated pressures and neurological changes - Close monitoring of blood pressure, continue home medications for now - Consider switching losartan to nighttime dose as able to result in better blood pressure control - Dietitian recommendation for proper education regarding dietary changes - Admit to PCU for close neurological monitoring - PT/OT evaluation for balance - Continue valsartan and metoprolol # Suspected posterior TIA - NIHSS 0 in the ED - Primary imaging with CT head is negative - MRI brain for further evaluation - Echocardiogram - Close neurological checks in the PCU - Will hold off aspirin and statin at this time as suspicion is low # Chronic hepatitis B - Continue entecavir # Cirrhosis with portal hypertension # Thrombocytopenia - Noted, compensated # Gout - Continue home medications # DVT prophylaxis - Low to moderate risk - Encourage mobilization # COPD - Noted, no active concerns # Pulmonary nodule - Noted, no active concerns # Code - Full code NIHSS NIHSS Nursing Documentation NIHSS Nursing Documentation: NIHSS: Ischemic Stroke/TIA Start: 01/31/25 14:43 Text: For PCU Patients: NIH and Neuro Check every 4 Status: Active hours, PRN and with change in RN caregiver. Freq: [id number] Protocol: Activity Type Activity Date Activity User E-sign Co-sign Detail Recorded Client Recorded Date Recorded By Document 02/01/25 06:00 BRADLEY [id number] 02/01/25 06:07 BRADLEY 02/01/25 06:00 NIH Stroke Scale [NIHSS] A score of 0 is normal or asymptomatic . Total possible score is 42. Inpatient: RN or Physician to activate a stroke alert for onset of new stroke symptoms or with NIHSS increase >/= 3 points. Following change in neurological status, NIHSS will be performed per physician order or more frequently PRN. -1a. Level of Consciousness 0 - Alert; keenly responsive -1b. LOC Questions 0 - Answers BOTH questions correctly -1c. LOC Commands 0 - Performs BOTH tasks correctly -2. Best Gaze 0 - Normal -3. Visual 0 - No visual loss -4. Facial Palsy 0 - Normal symmetrical movements -5a. Left Arm 0 - No drift; arm holds 90 ( or 45) degrees for full 10 seconds -5b. Right Arm 0 - No drift; arm holds 90 ( or 45) degrees for full 10 seconds -6a. Left Leg 0 - No drift; leg holds 30- degree position for full 5 seconds -6b. Right Leg 0 - No drift; leg holds 30- degree position for full 5 seconds -7. Limb Ataxia 0 - Absent -8. Sensory 0 - Normal; no sensory loss -9. Best Language 0 - No aphasia; normal -10. Dysarthria 0 - Normal -11. Extinction and Inattention 0 - No abnormality -Total 0 Query Text:A score of 0 is normal or asymptomatic. Total possible score is 42 . ED: Notify Physician for NIHSS increase by > / = 3 points. Inpatient: RN or Physician to activate a stroke alert for NIHSS increase of > / = 3 points. Coma Scale [Assess] -Eye Opening Spontaneous -Motor Obeys Commands -Verbal Oriented [Total] -Coma Scale Total 15
[2025-02-01 08:25] LABS: Cholesterol 174 mg/dL (<=200); High Density Lipoprotein 52 mg/dL; Low Density Lipoprotein Calc. 105 mg/dL; Triglycerides 84 mg/dL; Very Low Density Lipoprotein 17 mg/dL (5-40); cholesterol:hdl ratio screen 3.33
[2025-02-01] MEDS: Losartan Potassium 25 MG Tablet PO (09:21)
[2025-02-01] MEDS: Pantoprazole Sodium 20 MG Tablet PO (09:21)
[2025-02-01] MEDS: Allopurinol 300 MG Tablet PO (09:21)
[2025-02-01] MEDS: Metoprolol Tartrate 25 MG Tablet PO (09:21)
[2025-02-01] MEDS: hydrALAZINE 20 MG/ML Vial 10 MG IV (12:35)
[2025-02-01] MEDS: Losartan Potassium 50 MG Tablet PO (12:35)
--- NOTE | 2025-02-01 13:33 | CASEMGMT ---
AYDEE CM in to discuss GRANDA form with patient. RN CM explained GRANDA form, patient voiced understanding. Pt signed form and filed in chart. Pt provided with a copy of signed GRANDA form. Patient had no further questions or concerns at this time.
--- NOTE | 2025-02-01 13:53 | DCINST_ITS ---
Discharge Instructions Diet Discharge Diet: Low fat / Low cholesterol and 2000 mg Sodium Diet DC O2, CPAP, BIPAP needs Home O2 Discharge instructions: No Dressing / Incision Discharge Activity: Return to Normal Activity Weight Bearing Status: Weight bearing as tolerated Dressing / Incision Call your doctor if you observe: Fever of 101 or Higher, Coldness, Increased Pain, Numbness or Tingling, Change in Color, Inability to urinate, Inability to have a bowel movement, Shortness of breath, Dizziness, Fainting spells, Swelling in the ankles, Chest pain, Prolonged hiccupping, Increased palpitations (irregular heartbeat) and Calf discomfort Follow Up Care When: IN 2 WEEKS Test Results: Test results from this visit will be discussed in further detail at your follow- up appointment, if applicable. Discharge Plan Admission Admit Date/Time: 01/31/25 14:41 Primary Reason for Your Visit: Uncontrolled high blood pressure Attending Provider: Diego Rinaldi Primary Care Provider: Aniceto Alamo Consulting Providers: Cherri Bhandari Instructions Additional Instructions / Restrictions: Advised to check BP at home. Patient had all old blood pressure machine at home. Discharge Orders/Prescriptions Prescriptions: New chlorthalidone 12.5 mg tablet 12.5 mg PO DAILY 30 Days Qty: 30 0RF Continued omeprazole 20 mg capsule,delayed release(DR/EC) 20 mg PO DAILY allopurinol 300 mg tablet 300 mg PO DAILY entecavir 1 mg tablet 1 mg PO DAILY levothyroxine 50 mcg tablet 50 mcg PO DAILY metoprolol tartrate 25 mg tablet 25 mg PO BID Changed valsartan 40 mg tablet 80 mg PO DAILY 30 Days Qty: 0 0RF Referrals / Follow Up: Aniceto Alamo MD [Primary Care Provider] - Disposition Disposition (needs filled in before D/C Order can be placed): Home, Self Care
--- NOTE | 2025-02-01 14:02 | DS.PCM_ITS ---
Providers Date of Admission: 01/31/25 Date of Discharge: 02/01/25 Primary Care Physician: Dr. Aniceto Alamo MD Reason For Visit: ATAXIA Diagnosis Discharge Diagnosis (1) Hypertension: Status: Chronic Code(s): I10 - Essential (primary) hypertension Qualifiers: Hypertension type: essential hypertension Qualified Code(s): I10 - Essential (primary) hypertension; I10 - Essential (primary) hypertension; I10 - Essential (primary) hypertension Plan 79-year-old man with history of hypertension, chronic hepatitis B, cirrhosis with portal hypertension, GERD, dyslipidemia, lung nodule, presents to the ED with concerns regarding dizziness in the setting of elevated blood pressures. He denies confusion, change in mental status, blurry vision, seizures or loss of consciousness noted mild headache on the parietal region. Patient stated that his blood pressure has been high in PCP office but his home BP machine is old that shows BP around 120s systolic. # Hypertensive urgency: Patient is being admitted in PCU. I do not think patient had hypertensive emergency for the reasons mentioned above. His blood pressure has been chronically elevated but in the ED was 181/82, 160/98. Gradually it is decreased. Today it is 168/88. Losartan dose increased to 50 mg daily and accordingly Home medication, valsartan dose was increased to 80 mg daily. Started on chlorthalidone 12.5 mg daily. Blood pressure reasonably decreased to 148/86 at the time of discharge. Advised to continue blood pressure 140-160 mmHg for next 1 day and then goal less than 130 mmHg On IV hydralazine as needed. Advised patient to check BP every day in the morning. MRI brain was negative for acute stroke or hemorrhage or other significant positive changes. Acute stroke ruled out. NIH stroke scale 0. Advised close follow-up PCP in less than 1 week. # Suspected posterior TIA - NIHSS 0 in the ED and thereafter 0 in PCU. 2D echo in July 2017 shows EF 60% with mild concentric LVH, mild TR trivial AI suggestive of chronic changes of uncontrolled hypertension even then # Chronic hepatitis B - Continue entecavir # Cirrhosis with portal hypertension # Thrombocytopenia - Noted, compensated # Gout - Continue home medications # DVT prophylaxis - Low to moderate risk - Encourage mobilization # COPD - Noted, no active concerns. No acute shortness of breath. No exacerbation # Pulmonary nodule - Noted, no active concerns # Code - Full code Discharge medication reconciliation done. Discharge follow-up instructions completed. Discharge process discussed with the patient and all questions were answered to patient's satisfaction. Follow with PCP in 1 to 2 weeks Total time spent, exact 35 minutes on discharge meds reconciliation, examination, coordination of care with nurses and ancillary staff, review of imaging and blood test and discussion with the patient on follow-up instructions. Medications at Discharge Home Medications omeprazole 20 mg capsule,delayed release 20 mg PO DAILY GERD 08/22/17 allopurinol 300 mg tablet 300 mg PO DAILY gout 03/05/24 entecavir 1 mg tablet 1 mg PO DAILY 03/05/24 levothyroxine 50 mcg tablet 50 mcg PO DAILY thyroid 03/05/24 metoprolol tartrate 25 mg tablet 25 mg PO BID blood pressure 01/31/25 chlorthalidone 12.5 mg tablet 12.5 mg PO DAILY 1 month #30 tabs 02/01/25 valsartan 40 mg tablet 80 mg (2 x 40 mg) PO DAILY Blood pressure 30 days #0 tabs 02/01/25 Physical Exam Narrative Seen and examined Patient not having headache dizziness or lightheadedness. Wants to go home. Blood pressure elevated but controlled at the time of. Physical exam: General: Alert, Oriented x3, Cooperative. BMI 37.0, obesity grade 2 HEENT: Atraumatic, PERRLA, EOMI, Normocephalic. Oral: No Gingival or Mucosal Lesions/ Ulcerations Neck: Supple, No JVD, Negative Carotid Bruits Chest wall/Lungs: Air entry diminished in bilateral lung bases. No crepitation/rhonchi Cardiovascular: Regular rate and rhythm, Normal S1,S2, No M/G/R Abdomen: Bowel Sounds Present, Soft, Non Tender, Non-Distended : No dysuria. No renal angle tenderness. No suprapubic tenderness. Extremities: minimal leg edema, Capillary Refill Less than 3 Seconds Skin: No rashes, No breakdown Musculoskeletal: No Tenderness to Palpation of Joints or Extremities Neurological: Cranial nerves II-XII grossly intact, DTR 2+/4. No acute focal neurological deficit. Psych/Mental Status: Flat affect Weight / BMI Weight Weight: 264 lb 15.93 oz Body Mass Index (BMI) 36.9 ABG / Lab / Microbiology Data 02/01/25 04:30 02/01/25 04:30 Laboratory: Laboratory Results - last 24 hr 01/31/25 11:20: Hemoglobin A1c 6.2 H 02/01/25 04:30: WBC 7.5, RBC 4.84, Hgb 14.7, Hct 43.7, MCV 90.3, MCH 30.4, MCHC 33.6, RDW Std Deviation 47.8 H, RDW Coeff of Tima 14.4, Plt Count 97 L, MPV 11.6, Immature Gran % (Auto) 0.400, Neut % (Auto) 59.8, Lymph % (Auto) 26.6, [place] % (Auto) 10.2 H, Eos % (Auto) 2.3, Baso % (Auto) 0.7, Absolute Neuts (auto) 4.5, Absolute Lymphs (auto) 1.99, Nucleated RBC % 0, Differential Comment SCANNED, Platelet Estimate MOD DEC, PT 13.7, INR 1.0, Sodium 140, Potassium 4.1, Chloride 107, Carbon Dioxide 21.1, Anion Gap 11, BUN 17, Creatinine 0.98, Estim Creat Clear Calc 81.95, Est GFR (MDRD) Non-Af 79, BUN/Creatinine Ratio 17.7, Glucose 106 H, Calcium 8.5, Phosphorus 3.2, Magnesium 2.0, Total Bilirubin 0.88, Direct Bilirubin 0.35 H, AST 23, ALT 13, Alkaline Phosphatase 78, Total Protein 5.8 L, Albumin 3.4, Globulin 2.3, Albumin/Globulin Ratio 1.5, Triglycerides 84, Cholesterol 174, LDL Cholesterol, Calc 105, VLDL Cholesterol 17, HDL Cholesterol 52, Cholesterol/HDL Ratio 3.33, TSH 2.530 Radiography Diagnostic Testing: Radiology Impression Head/Neck CTA 01/31/25 14:24 IMPRESSION: No acute large vessel occlusions or high grade stenosis. No vascular malformations or dominant aneurysms. Reading Location: [id number] Brain MRI 02/01/25 14:59 IMPRESSION: Mild chronic microvascular changes. No other significant positive findings Reading [facility] Instructions Discharge Diet: Low fat / Low cholesterol and 2000 mg Sodium Diet Weight Bearing Status: Weight bearing as tolerated Call your doctor if you observe: Fever of 101 or Higher, Coldness, Increased Pain, Numbness or Tingling, Change in Color, Inability to urinate, Inability to have a bowel movement, Shortness of breath, Dizziness, Fainting spells, Swelling in the ankles, Chest pain, Prolonged hiccupping, Increased palpitations (irregular heartbeat) and Calf discomfort DC O2, CPAP, BIPAP Needs Home O2 Discharge instructions: No When: IN 2 WEEKS Meaningful Use Info Meaningful Use Meaningful Use Diagnoses (Choose all that apply): None applicable Ischemic Stroke Statin Dosing Therapy Reference: STATIN DOSE THERAPY REFERENCE: * Patients > 75 years receive moderate or high dose statin therapy. * Patients 75 years or YOUNGER should receive HIGH intensity statin dose unless contraindicated. You will be required to document reason for non-treatment if statin daily dose does not meet guidelines. HIGH DOSE STATIN THERAPY DAILY Atorvastatin > than or = to 40 mg Rosuvastatin > than or = to 20 mg Amlodipine + Atorvastatin > than or = to 2.5/40 mg Ezetimibe + Simvastatin 10/80 mg Simvastatin 80mg Discharge Plan Admission Admit Date/Time: 01/31/25 14:41 Primary Reason for Your Visit: Uncontrolled high blood pressure Attending Provider: Diego Rinaldi Primary Care Provider: Aniceto Alamo Consulting Providers: Cherri Bhandari Instructions Additional Instructions / Restrictions: Advised to check BP at home. Patient had all old blood pressure machine at home. Discharge Orders/Prescriptions Prescriptions: New chlorthalidone 12.5 mg tablet 12.5 mg PO DAILY 30 Days Qty: 30 0RF Continued omeprazole 20 mg capsule,delayed release(DR/EC) 20 mg PO DAILY allopurinol 300 mg tablet 300 mg PO DAILY entecavir 1 mg tablet 1 mg PO DAILY levothyroxine 50 mcg tablet 50 mcg PO DAILY metoprolol tartrate 25 mg tablet 25 mg PO BID Changed valsartan 40 mg tablet 80 mg PO DAILY 30 Days Qty: 0 0RF Referrals / Follow Up: Aniceto Alamo MD [Primary Care Provider] - Disposition Disposition (needs filled in before D/C Order can be placed): Home, Self Care Charges/Coding Visit Charges Inpatient E&M: 41373 Disch Hosp >30min
--- NOTE | 2025-02-01 14:59 | MRI_ITS ---
PROCEDURE: BRAIN W/WO CONTRAST 02/01/2025 REASON FOR EXAM: TIA TECHNIQUE: Routine brain MRI without and with intravenous contrast. Multiplanar and multisequence images were obtained. CONTRAST: 24 [place] FINDINGS: Normal craniocervical junction. No Chiari deformity. No pathologic diffusion restriction. No hydrocephalus. No abnormal flow voids. No intracranial mass. Mild chronic microvascular change in the periventricular white matter and brainstem. No hemorrhage. No hippocampal asymmetry. No pathologic enhancement. MRI/Brain W/WO Contrast IMPRESSION: Mild chronic microvascular changes. No other significant positive findings Reading Location[facility]
== END 2025-02-01 15:12 | disposition home or self-care (01) ==
LOC: ED 14:40 → PCU 14:51
PROVIDERS: Admitting Provider Internal Medicine; Emergency Provider Emergency Medicine; PCP Family Medicine; Visit Provider Internal Medicine
DX: I10 Essential (primary) hypertension (principal); J44.9 Chronic obstructive pulmonary disease, unspecified; B18.1 Chronic viral hepatitis B without delta-agent; M10.9 Gout, unspecified; Z87.891 Personal history of nicotine dependence; E78.2 Mixed hyperlipidemia; K21.9 Gastro-esophageal reflux disease without esophagitis; Z79.899 Other long term (current) drug therapy; R91.1 Solitary pulmonary nodule; E03.9 Hypothyroidism, unspecified; Z79.890 Hormone replacement therapy
CPT/HCPCS: 36415; 70450; 70496; 70498; 70553; 71045; 80048; 80053; 80061; 80076; 81001; 83036; 83735; 84100; 84443; 84484; 85025; 85610; 93005; 94762; 96361; 96374; 97802; 99221; 99285; A9575; Q9967; A4216; G0378

== ENCOUNTER → 2025-01-31 | Outpatient (CLI) | payer MEDICARE, OTHER, SELFPAY ==
--- NOTE | 2025-01-31 08:30 | MRI_ITS ---
PROCEDURE: MRI ABD WITH AND W/O CONTRAST 01/31/2025 REASON FOR EXAM: CIRRHOSIS TECHNIQUE: MRI of the upper abdomen without and with intravenous gadolinium-based contrast. Multiplanar and multisequence images were obtained. CONTRAST: Clariscan VOLUME: 23mL gauge IV COMPARISON: CT scan on 08/02/2023. Ultrasound exam on 07/23/2024. FINDINGS: Hepatomegaly measuring 18.5 cm. Hepatic steatosis. Mild diffuse irregularity of the hepatic contour, probably chronic parenchymal liver disease/cirrhosis. No suspicious liver nodule is seen. Splenomegaly measuring 14.2 cm. Cholelithiasis without acute cholecystitis. Small sliding hiatal hernia. Minimal left pleural effusion. Passive atelectatic airspace disease in the left lower lobe. Heterogeneous signal intensity of the visualized bone marrow, probably osteopenia. Moderate diffuse spondylosis. The visualized lung bases are unremarkable. Normal extrahepatic biliary system. Normal pancreas. Normal bilateral adrenal glands. Normal size of the right kidney. There is no right renal mass. There are no right renal calculi. There is no right hydronephrosis. Normal visualized right ureter. Normal size of the left kidney. There is no left renal mass. There are no left renal calculi. There is no left hydronephrosis. Normal visualized left ureter. Normal remaining visualized stomach. Normal visualized small intestine. Normal visualized colon. There is no demonstrated peritoneal fluid. Normal abdominal aorta. Normal inferior vena cava. Normal retroperitoneum. Normal abdominal wall. MRI/MRI Abd WITH and W/O Contrast IMPRESSION: 1. Hepatomegaly measuring 18.5 cm. 2. Hepatic steatosis. 3. Mild diffuse irregularity of the hepatic contour, probably chronic parenchym al liver disease/cirrhosis. 4. No suspicious liver nodule is seen. 5. Splenomegaly measuring 14.2 cm. 6. Cholelithiasis without acute cholecystitis. 7. Small sliding hiatal hernia. 8. Minimal left pleural effusion. 9. Passive atelectatic airspace disease in the left lower lobe. 10. Heterogeneous signal intensity of the visualized bone marrow, probably oste openia. 11. Moderate diffuse spondylosis. OVERALL FINAL ASSESSMENT: LIRADS 1. LI-RADS is not meant to be used in patients <18 years or patients with cirrhosi s due to congenital hepatic fibrosis or due to vascular disorders, because these patients have a lower chance of developing HC C. Reading [facility]
== END | disposition home or self-care (01) ==
PROVIDERS: PCP Family Medicine; Referring Provider Internal Medicine Gastroenterology; Visit Provider Internal Medicine Gastroenterology
DX: K74.60 Unspecified cirrhosis of liver (principal)
CPT/HCPCS: 74183; A9575; A4216

== ENCOUNTER → 2025-07-21 | Outpatient (CLI) | payer MEDICARE, OTHER, SELFPAY ==
[2025-07-21 12:28] LABS: Hematocrit 45.4 % (40-54); Hemoglobin 15.6 g/dL (13.0-16.5); Immature Granulocytes Count 0.020 X10^3/uL (0.0-0.0); Mean Corp Hgb Conc 34.4 g/dL (32-36); Mean Corpuscular Volume 92.5 fL (80-94); Mean Platelet Vol. 12.6 fl (6.2-12.0); NRBC Flagged by Analyzer 0 % (0-5); POSITIVE COUNT YES; Platelet Count 80 K/mm3 (150-450); RBC Distribution Width CV 12.9 % (11.6-14.6); RBC Distribution Width SD 43.7 fl (35.1-43.9); Red Blood Count 4.91 M/mm3 (4.6-6.2); White Blood Count 7.1 K/mm3 (4.4-11.0)
[2025-07-21 12:58] LABS: AST(SGOT) 81 U/L (<=37); Alanine Aminotransfer ALT/SGPT 112 U/L (<=46); Albumin, Serum 4.0 g/dL (3.4-4.8); Alkaline Phosphatase 78 U/L (40-129); Anion Gap 11 (5-15); BUN 19 mg/dL (4-19); BUN/Creat Ratio 17.9 RATIO (10-20); Calcium,Total 9.2 mg/dL (7.6-11.0); Carbon Dioxide 22.4 mmol/L (21.0-32.0); Chloride 107 mmol/L (98-108); Globulin 2.7 g/dL (2.2-4.2); Glucose 118 mg/dL (70-99); Potassium 4.2 mmol/L (3.3-5.1)
== END | disposition home or self-care (01) ==
LOC: MTLAB 09:56
PROVIDERS: PCP Family Medicine; Referring Provider Internal Medicine Gastroenterology; Visit Provider Internal Medicine Gastroenterology
DX: K74.60 Unspecified cirrhosis of liver (principal)
CPT/HCPCS: 36415; 80053; 82105; 85025; 86706

== ENCOUNTER → 2025-07-22 | Outpatient (CLI) | payer MEDICARE, OTHER, SELFPAY ==
--- NOTE | 2025-07-22 08:47 | US_ITS ---
PROCEDURE: ABDOMEN LIMITED 07/22/2025 REASON FOR EXAM: CIRRHOSIS TECHNIQUE: Procedure Code: USABDL Modality: US Procedure: ABDOMEN LIMITED COMPARISON: July 23, 2024. FINDINGS: Liver: Diffusely echogenic suggesting fatty infiltration. The liver measures 17.6 cm. Gallbladder: Multiple echogenic gallstones are identified. Common bile duct: Normal measuring 2.6 areas . Pancreas: Obscured by bowel gas. Other: Visualized portions of the right kidney are unremarkable. No right upper quadrant ascites. US/Abdomen Limited IMPRESSION: Borderline hepatomegaly. Fatty infiltration of the liver. Multiple gallstones. Reading Location: [id number]
== END | disposition home or self-care (01) ==
LOC: US 08:41
PROVIDERS: PCP Family Medicine; Referring Provider Internal Medicine Gastroenterology; Visit Provider Internal Medicine Gastroenterology
DX: K74.60 Unspecified cirrhosis of liver (principal)
CPT/HCPCS: 76705

== ENCOUNTER → 2025-07-29 | Outpatient (CLI) | payer MEDICARE, OTHER, SELFPAY ==
[2025-07-29 15:28] LABS: Hematocrit 47.5 % (40-54); Hemoglobin 16.0 g/dL (13.0-16.5); Immature Granulocytes Count 0.020 X10^3/uL (0.0-0.0); Mean Corp Hgb Conc 33.7 g/dL (32-36); Mean Corpuscular Volume 92.8 fL (80-94); Mean Platelet Vol. 11.8 fl (6.2-12.0); NRBC Flagged by Analyzer 0 % (0-5); Platelet Count 115 K/mm3 (150-450); RBC Distribution Width CV 13.4 % (11.6-14.6); RBC Distribution Width SD 45.5 fl (35.1-43.9); Red Blood Count 5.12 M/mm3 (4.6-6.2); White Blood Count 7.2 K/mm3 (4.4-11.0)
[2025-07-29 15:36] LABS: Prothrombin Time (Protime)PT. 13.9 SECONDS (11.7-14.9)
[2025-07-29 15:52] LABS: AST(SGOT) 55 U/L (<=37); Alanine Aminotransfer ALT/SGPT 89 U/L (<=46); Albumin, Serum 4.1 g/dL (3.4-4.8); Alkaline Phosphatase 77 U/L (40-129); Anion Gap 10 (5-15); BUN 20 mg/dL (4-19); BUN/Creat Ratio 16.6 RATIO (10-20); Calcium,Total 9.3 mg/dL (7.6-11.0); Carbon Dioxide 26.8 mmol/L (21.0-32.0); Chloride 106 mmol/L (98-108); Globulin 2.8 g/dL (2.2-4.2); Glucose 103 mg/dL (70-99); Potassium 4.6 mmol/L (3.3-5.1)
== END | disposition home or self-care (01) ==
LOC: MTLAB 12:35
PROVIDERS: PCP Family Medicine; Referring Provider Internal Medicine Gastroenterology; Visit Provider Internal Medicine Gastroenterology
DX: K74.60 Unspecified cirrhosis of liver (principal)
CPT/HCPCS: 36415; 80053; 82105; 85025; 85610